=== PATIENT | male | born 1955 | race Caucasian/White ===

== ENCOUNTER 2017-04-15 06:57 | Inpatient (IN) | payer BC ==
[~2017-04-15 06:57] MED LIST: Acetaminophen/oxyCODONE 325-5 MG Tab PO PRN; Bisacodyl 5 MG Tab PO PRN; EPINEPHrine 1 MG/ML SDV ONE; Lactated Ringers 1,000 ML IV SCH; Lidocaine 1%/Sod Bicarbonate in NS 8.4% 1 ML Syringe IV PRN; Magnesium Hydroxide 400 MG/5 ML Susp 30 ML Cup PO PRN; Morphine 2 MG/ML Syringe IVPUSH PRN; Naloxone 0.4 MG/ML SDV IVPUSH PRN; Ondansetron 4 MG/2 ML SDV IVPUSH PRN; Ropivacaine 0.5% 5 MG/ML 30 ML SDV ONE; Sennosides 8.6 MG Tab PO PRN; Sodium Chloride 0.9% 10 ML Syringe FLUSH PRN; diphenhydrAMINE 50 MG/ML SDV IVPUSH PRN
--- NOTE | 2017-04-15 07:59 | PCM.PREANE ---
Preanesthetic Assessment - Anesthesia/Transfusion/Family Hx Anesthesia History: Prior Anesthesia Without Reaction Family History of Anesthesia Reaction: No Transfusion History: No Prior Transfusion(s) Intubation History: Unknown - Review of Systems General: No Symptoms Pulmonary: No Symptoms (quit smoking 2014/albuterol inhaler used one month ago.) Cardiovascular: No Symptoms (HTN, CAD, Heart catheterization 2016/ [place] 11/01/2015) Gastrointestinal: No Symptoms Neurological: No Symptoms, Headache (migraines on occasion, none for a year.) Other: Reports: Diabetes (am bs @ [id number]/ HGB A1C= 6.3), Sinus Problem (post nasal drip in the am.), Neck Pain (some arthritis may be present per patient.) - Physical Assessment NPO Status Date: 04/14/17 NPO Status Time: 18:00 Pulse: 58 O2 Sat by Pulse Oximetry: 97 Respiratory Rate: 17 Blood Pressure: 148/95 Temperature: 36.7 C Vital Signs: Last Vital Signs Temp 36.7 C 04/15/17 07:10 Pulse 58 L 04/15/17 07:10 Resp 17 04/15/17 07:10 BP 148/95 H 04/15/17 07:10 Pulse Ox 97 04/15/17 07:10 Height: 1.88 m Weight: 100 kg ASA Class: 2 Mental Status: Alert & Oriented x3 Airway Class: Mallampati = 2 Dentition: Reports: Normal Dentition, [place](s), [place] Thyro-Mental Finger Breadths: 3 Mouth Opening Finger Breadths: 3 ROM/Head Extension: Full Lungs: Clear to Auscultation, Normal Respiratory Effort Cardiovascular: Regular Rate, Regular Rhythm, No Murmurs - Lab Values: Laboratory Last Values POC Glucose 124 mg/dL (70-105) H 04/15/17 07:31 MRSA= - All labs reviewed and noted and within acceptable ranges to proceed with scheduled procedure. INR= 0.9 PT= 9.7 PTT= 30.9 - Imaging/EKG Impressions: EKG: SB rate = 57 CXR= Normal chest - Allergies Allergies/Adverse Reactions: Allergies Allergy/AdvReac Type Severity Reaction Status Date / Time No Known Allergies Allergy Verified 04/14/17 14:18 - Anesthesia Plan Pre-Op Medication Ordered: None - Acknowledgements Anesthesia Type Planned: General Anesthesia (With a Right interscalene block under ultrasound guidance for post operative pain control requested by Dr. Hernandez. ) Pt an Appropriate Candidate for the Planned Anesthesia: Yes Alternatives and Risks of Anesthesia Discussed w Pt/Guardian: Yes Pt/Guardian Understands and Agrees with Anesthesia Plan: Yes PreAnesthesia Questionnaire HEENT History: Reports: None Other HEENT History: states spotty vision to right eye Cardiovascular History: Reports: High Cholesterol, Hypertension, [place], Other (See Below) Other Cardiovascular History: heart disease, heart catheterization Respiratory History: Reports: None Other Respiratory History: possible gardner's lung Gastrointestinal History: Reports: None Genitourinary History: Reports: None MANAGER GROUP History: Reports: None Musculoskeletal History: Reports: None Neurological History: Reports: Migraines Psychiatric History: Reports: None Endocrine/Metabolic History: Reports: Diabetes, Type II Hematologic History: Reports: None Immunologic History: Reports: None Oncologic (Cancer) History: Reports: None Dermatologic History: Reports: None - Past Surgical History HEENT Surgical History: Reports: LASIK Cardiovascular Surgical History: Reports: None Respiratory Surgical History: Reports: None GI Surgical History: Reports: Appendectomy, Colonoscopy, Hernia Repair/Other Female Surgical History: Reports: None Male Surgical History: Reports: None Endocrine Surgical History: Reports: None Neurological Surgical History: Reports: None Musculoskeletal Surgical History: Reports: Other (See Below) Other Musculoskeletal Surgeries/Procedures:: 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 Oncologic Surgical History: Reports: None Dermatological Surgical History: Reports: None - SUBSTANCE USE Smoking Status *Q: Never Smoker Second Hand Smoke Exposure: No Recreational Drug Use History: No - HOME MEDS Home Medications: Home Meds metFORMIN HCl [Metformin HCl] 500 mg PO BID 10/29/15 [History] Aspirin [Adult Low Dose Aspirin EC] 81 mg PO DAILY 11/19/15 [History] Losartan/Hydrochlorothiazide [Losartan-HCTZ 50-12.5 MG] 1 tab PO DAILY 11/19/15 [History] atorvaSTATin Calcium [Atorvastatin Calcium] 80 mg PO DAILY 11/19/15 [History] Albuterol Sulfate [Proair Hfa] 2 puff INH Q4H PRN 04/14/17 [History] Ubidecarenone [COQ-10] 90 mg PO DAILY 04/14/17 [History] - CURRENT (IN HOUSE) MEDS Current Meds: Current Medications Aspirin (Ecotrin) 325 mg PO DAILY ROSIBEL Bisacodyl (Dulcolax) 5 mg PO DAILY PRN PRN Reason: Constipation Cyclobenzaprine HCl (Flexeril) 10 mg PO TID PRN PRN Reason: Spasms Diphenhydramine HCl (Benadryl) 25 mg IVPUSH Q4H PRN PRN Reason: Nausea Docusate Sodium (Colace) 100 mg PO BID [facility] Famotidine (Pepcid) 20 mg PO Q12H [facility] Lactated Ringer's (Ringers, Lactated) 1,000 mls @ 125 mls/hr IV ASDIRECTED [facility] Stop: 04/15/17 16:00 Cefazolin Sodium/Dextrose 2 gm (/ Premix) 50 mls @ 100 mls/hr IV Q8H [facility] Stop: 04/15/17 23:14 Lidocaine/Sodium Bicarbonate (Buffered Lidocaine 1% In Ns 8.4%) 0.25 ml IV ONETIME PRN PRN Reason: Prior to IV Start Stop: 04/15/17 16:00 Magnesium Hydroxide (Milk Of Magnesia) 30 ml PO BID PRN PRN Reason: Constipation Morphine Sulfate (Morphine) 2 mg IVPUSH Q2H PRN PRN Reason: Breakthrough Pain Naloxone HCl (Narcan) 0.1 mg IVPUSH Q5M PRN PRN Reason: Oversedation Ondansetron HCl (Zofran) 4 mg IVPUSH Q6H PRN PRN Reason: Nausea/Vomiting Oxycodone/Acetaminophen (Percocet 325-5 Mg) 1 - 2 tab PO Q4H PRN PRN Reason: Pain Senna (Senna) 8.6 mg PO BID PRN PRN Reason: Constipation Sodium Chloride (Saline Flush) 10 ml FLUSH ASDIRECTED PRN PRN Reason: Keep Vein Open Discontinued Medications Epinephrine HCl (Adrenalin 1:1000) Confirm Administered Dose 1 mg .ROUTE .STK- MED ONE Stop: 04/15/17 06:15 Ropivacaine (Naropin 0.5%) Confirm Administered Dose 30 ml .ROUTE .STK-MED ONE Stop: 04/15/17 06:15
[2017-04-15] MEDS ORDERED: Vancomycin 1 GM SDV ONE (08:07)
[2017-04-15] MEDS ORDERED: ceFAZolin 1 GM Vial ONE ×2 (08:07→11:28)
[2017-04-15] MEDS ORDERED: Iodine/Sodium Iodide 2% Tincture 30 ML Bottle ONE (08:07)
[2017-04-15] MEDS ORDERED: Bupivacaine 0.25% 30 ML SDV ONE (08:07)
[2017-04-15] MEDS ORDERED: Lidocaine 1% 2 ML ONE (08:51)
[2017-04-15] MEDS ORDERED: fentaNYL 250 MCG/5 ML SDV ONE (08:51)
[2017-04-15] MEDS ORDERED: Midazolam 1 MG/ML 2 ML SDV ONE (08:51)
--- NOTE | 2017-04-15 09:43 | PCM.SN ---
- Free Text/Narrative Note: Anesthesia Note: (Interscalene block note) Date: 04/15/17 Time Out: 0845 Start: 849 Stop: 904 Surgical Procedure: Right Total Shoulder Arthroplasty Diagnosis: Right Shoulder Osteoarthritis Current Procedure: Right interscalene block under US guidance for postoperative pain control requested by Dr. Hernandez. Patient chart reviewed, risk/benefits discussed with patient, consent obtained. Patient positioned supine, monitors/alarms on, oxygen placed via nasal cannula at 2 LPM. IV sedation administered: Versed 2mg IV @ 0851 Fentanyl 50 mcg IV @ 0851 Right shoulder prepped with two chloropreps. Sterile drapes placed with aseptic technique noted. Under US guidance(sterile US sleeve noted) right subclavian artery visualized along with the right brachial plexus. Plexus followed up to C6 cricoid level, and area localized with 2mls of 1% lidocaine. 22gauge 2 inch stimiplex needle advanced under US with 0.5mV with stimulation of biceps noted. Good stimulation noted with decreased voltage and absent at 0.2mVs. 1ml of Normal Saline injected with loss of stimulation noted to confirm needle not placed intraneurally. Incremental dosing of 5mls with negative aspiration noted prior to each injection of 0.5% ropivacaine with 1:200,000 epinephrine. Total volume=30mls. Vital Signs: Before HR: 58 RR: 15 BP: 135/92 Spo2: on 2 LPM nasal cannula After HR: 61 RR: 16 BP: 118/84 Spo2: on 2LPM nasal cannula
[2017-04-15] MEDS ORDERED: Propofol 200 MG/20 ML SDV ONE (10:27)
[2017-04-15] MEDS ORDERED: Ondansetron 4 MG/2 ML SDV ONE (10:28)
[2017-04-15] MEDS ORDERED: Dexamethasone 4 MG/ML 5 ML MDV ONE (10:28)
[2017-04-15] MEDS ORDERED: Lidocaine 1% 4 ML ONE (10:28)
[2017-04-15] MEDS ORDERED: Rocuronium 50 MG/5 ML Vial ONE ×2 (10:28→12:05)
[2017-04-15] MEDS ORDERED: Promethazine 6.25 MG in Sodium Chloride 0.9% 50 ML IV PRN (11:32)
[2017-04-15] MEDS ORDERED: fentaNYL 100 MCG/2 ML SDV IVPUSH PRN (11:32)
[2017-04-15] MEDS ORDERED: Meperidine PF 50 MG/ML Syringe IVPUSH PRN (11:32)
[2017-04-15] MEDS ORDERED: HYDROmorphone 0.5 MG/0.5 ML Syringe IVPUSH PRN (11:32)
[2017-04-15] MEDS ORDERED: diphenhydrAMINE 50 MG/ML SDV IVPUSH PRN (11:32)
[2017-04-15] MEDS ORDERED: Lactated Ringers 1,000 ML ONE (11:34)
--- NOTE | 2017-04-15 13:17 | CR ---
Right shoulder: Four fluoroscopic spot views were obtained. Right shoulder prosthesis placement utilizing C-arm device. Humeral component is noted within the humerus. Fluoroscopy time is given as 5.1 seconds. Impression: 1. Operative study as noted above. Diagnostic code #2
--- NOTE | 2017-04-15 13:38 | PCM.POSTAN ---
POST ANESTHESIA ASSESSMENT - MENTAL STATUS Mental Status: Alert, Oriented - VITAL SIGNS Pulse Rate: 71 SaO2: 96 Resp Rate: 19 Blood Pressure: 139/87 Temperature: 36.6 C - RESPIRATORY Respiratory Status: Respiratory Rate WNL, Airway Patent, O2 Saturation Stable, Supplemental Oxygen - CARDIOVASCULAR CV Status: Pulse Rate WNL, Blood Pressure Stable - GASTROINTESTINAL GI Status: No Symptoms - PAIN Pain Score: 0 - POST OP HYDRATION Hydration Status: Adequate & Stable
[2017-04-15] MEDS ORDERED: Albuterol 6.7 GM Inhaler INH PRN (13:58)
--- NOTE | 2017-04-15 15:10 | PCM.CONS ---
H&P History of Present Illness - General Date of Service: 04/15/17 Admit Problem/Dx: Admission Diagnosis/Problem Admission Diagnosis/Problem Osteoarthritis of shoulder Source of Information: Patient, Other (records review) History Limitations: Reports: No Limitations - History of Present Illness Initial Comments - Free Text/Narative: Juancho is a 61yo male s/p Rt TSA with Dr. Hernandez today. PMH is significant for HTN, HLD, CAD s/p AMI with angiogram in July of 2015, DM with A1C 6.3 preoperatively, neck pain/arthritis, "possible gardner's lung", hx of sinus disease, ex smoker- quit in 2014. Hospitalist service is consulted for postoperative medical management. PCP is - Related Data Allergies/Adverse Reactions: Allergies Allergy/AdvReac Type Severity Reaction Status Date / Time No Known Allergies Allergy Verified 04/14/17 14:18 Home Medications: Home Meds metFORMIN HCl [Metformin HCl] 500 mg PO BID 10/29/15 [History] Aspirin [Adult Low Dose Aspirin EC] 81 mg PO DAILY 11/19/15 [History] Losartan/Hydrochlorothiazide [Losartan-HCTZ 50-12.5 MG] 1 tab PO DAILY 11/19/15 [History] atorvaSTATin Calcium [Atorvastatin Calcium] 80 mg PO DAILY 11/19/15 [History] Albuterol Sulfate [Proair Hfa] 2 puff INH Q4H PRN 04/14/17 [History] Ubidecarenone [COQ-10] 90 mg PO DAILY 04/14/17 [History] Past Medical History HEENT History: Reports: None Other HEENT History: states spotty vision to right eye Cardiovascular History: Reports: High Cholesterol, Hypertension, [place], Other (See Below) Other Cardiovascular History: heart disease, heart catheterization Respiratory History: Reports: None Other Respiratory History: possible gardner's lung Gastrointestinal History: Reports: None Genitourinary History: Reports: None 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: Reports: 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 Musculoskeletal History: Reports: None Neurological History: Reports: Migraines Psychiatric History: Reports: None Endocrine/Metabolic History: Reports: Diabetes, Type II Hematologic History: Reports: None Immunologic History: Reports: None Oncologic (Cancer) History: Reports: None Dermatologic History: Reports: None - Past Surgical History HEENT Surgical History: Reports: LASIK Cardiovascular Surgical History: Reports: None Respiratory Surgical History: Reports: None GI Surgical History: Reports: Appendectomy, Colonoscopy, Hernia Repair/Other Female Surgical History: Reports: None Male Surgical History: Reports: None Endocrine Surgical History: Reports: None Neurological Surgical History: Reports: None Musculoskeletal Surgical History: Reports: Other (See Below) Other Musculoskeletal Surgeries/Procedures:: 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 Denies: Shortness of Breath, Wheezing Cardiovascular: Reports: No Symptoms Gastrointestinal: Reports: No Symptoms Genitourinary: Reports: No Symptoms Musculoskeletal: Reports: Shoulder Pain, Arm Pain Psychiatric: Reports: No Symptoms Neurological: Reports: No Symptoms Exam - Exam Exam: See Below - Vital Signs Vital Signs: Last Vital Signs Temp 97.8 F 04/15/17 13:38 Pulse 71 04/15/17 13:38 Resp 19 04/15/17 13:38 BP 139/87 04/15/17 13:38 Pulse Ox 96 04/15/17 13:38 Weight: 220 lb 7.396 oz - Exam Quality Assessment: DVT Prophylaxis General: Alert, Oriented, Cooperative HEENT: Conjunctiva Clear, EOMI, Hearing Intact, Mucosa Moist & [employer], Pupils Equal Neck: Supple Lungs: Clear to Auscultation, Normal Respiratory Effort Cardiovascular: Regular Rate, Regular Rhythm GI/Abdominal Exam: Normal Bowel Sounds, Soft, Non-Tender (Male) Exam: Deferred Rectal (Males) Exam: Deferred Extremities: Other (shoulder immobilizer in place; CMS + and = bilat) Peripheral Pulses: 2+: Radial (L), Radial (R) Skin: Warm Neurological: Cranial Nerves Intact Neuro Extensive - Mental Status: Alert, Oriented x3, Normal Mood/Affect, Normal Cognition Psychiatric: Alert, Normal Affect, Normal Mood - Patient Data Lab Results Last 24 hrs: Laboratory Results - last 24 hr 04/15/17 Range/Units 07:31 POC Glucose 124 H (70-105) mg/dL Consult PN Assessment/Plan POD#: 0 Procedures: Procedures ASSAY OF CREATININE (10/25/15) ASSAY OF TROPONIN QUANT (10/29/15) CARDIAC REHAB/MONITOR (01/16/16) CHEST X-RAY 1 VIEW FRONTAL (10/29/15) CHEST X-RAY 2VW FRONTAL&LATL (08/28/15) COMPLETE CBC W/AUTO DIFF WBC (10/29/15) COMPREHEN METABOLIC PANEL (10/29/15) CT HEAD/BRAIN W/O & W/DYE (10/25/15) CT ORBIT/EAR/FOSSA W/O&W/DYE (10/25/15) ELECTROCARDIOGRAM TRACING (10/29/15) EMERGENCY DEPT VISIT (10/29/15) INFLUENZA ASSAY W/OPTIC (08/01/15) MR-STAPH DNA AMP PROBE (04/02/17) MRI BRAIN STEM W/O DYE (11/05/15) ROUTINE VENIPUNCTURE (10/29/15) THER/PROPH/DIAG INJ IV PUSH (10/29/15) TX/PRO/DX INJ NEW DRUG ADDON (10/29/15) TX/PRO/DX INJ SAME DRUG [place] (10/29/15) X-RAY EXAM OF FOOT (05/21/14) (1) Status post total shoulder arthroplasty SNOMED Code(s): 078245670 Code(s): Z96.619 - PRESENCE OF UNSPECIFIED ARTIFICIAL SHOULDER JOINT Priority: High Current Visit: Yes (2) Osteoarthritis SNOMED Code(s): 554389537 Code(s): M19.90 - UNSPECIFIED OSTEOARTHRITIS, UNSPECIFIED SITE Priority: High Current Visit: Yes Qualifiers: Osteoarthritis location: shoulder Osteoarthritis type: primary (3) CAD (coronary artery disease) SNOMED Code(s): 67994981 Code(s): I25.10 - ATHSCL HEART DISEASE OF [place] CORONARY ARTERY W/O ANG PCTRS Priority: Medium Current Visit: No Qualifiers: Coronary Disease-Associated Artery/Lesion type: unspecified vessel or lesion type [place] vs. transplanted heart: [place] heart Associated angina: without angina Qualified Code(s): I25.10 - Atherosclerotic heart disease of [place] coronary artery without angina pectoris (4) HTN (hypertension) SNOMED Code(s): 62975952 Code(s): I10 - ESSENTIAL (PRIMARY) HYPERTENSION Priority: Medium Current Visit: No Qualifiers: Hypertension type: essential hypertension Qualified Code(s): I10 - Essential (primary) hypertension (5) HLD (hyperlipidemia) SNOMED Code(s): 16109549 Code(s): E78.5 - HYPERLIPIDEMIA, UNSPECIFIED Priority: Medium Current Visit: No Qualifiers: Hyperlipidemia type: unspecified Qualified Code(s): E78.5 - Hyperlipidemia , unspecified (6) Diabetes type 2, controlled SNOMED Code(s): 73168558 Code(s): E11.9 - TYPE 2 DIABETES MELLITUS WITHOUT COMPLICATIONS Priority: Medium Current Visit: No Qualifiers: Diabetes mellitus complication status: without complication Diabetes mellitus alf insulin use: without termination clerk use Qualified Code(s): E11.9 - Type 2 diabetes mellitus without complications (7) Hx of migraine headaches SNOMED Code(s): 517797949 Code(s): Z86.69 - PERSONAL HISTORY OF DIS OF THE NERVOUS SYS AND SENSE ORGANS Priority: Low Current Visit: No Problem List Initiated/Reviewed/Updated: Yes Plan: I/P: S/P Rt TSA, POD #0, Dr. Hernandez -Pain management and DVT prophylax per primary team -PT/OT -RT/IS -Follow labs, am hgb -Supplemental oxygen as needed for sats <90%; wean when able Chronic medical conditions: Cont home meds -DM- type 2, controlled, A1C 6.3 -Hx CAD s/p AMI in 2016 -HLD -HTN- controlled -"possible farmers lung"; watch O2 sats, wean from supplemental oxygen when able -Hx migraine headaches -Hx tobacco use, quit smoking in 2014 Other: GI Prophylax Cont home meds Blood sugars AC/HS Telemetry Patient is Full Code status PCP is
[2017-04-15] MEDS ORDERED: 50% Dextrose in Water 50 ML Syringe IVPUSH PRN (15:26)
--- NOTE | 2017-04-15 16:26 | CR ---
Right shoulder: Portable view of the right shoulder was obtained. Comparison: No prior shoulder exam other than fluoroscopic study performed earlier on the same day. Shoulder prosthesis is seen. Components are aligned. Minimal inferior spurring is seen within the acromioclavicular joint. Nothing acute is seen. Soft tissue air is noted from the surgical procedure. Impression: 1. Incidental findings as noted above. Diagnostic code #2
[2017-04-15] MEDS: Ketorolac 15 MG/ML SDV IVPUSH PRN (16:27)
[2017-04-15] MEDS: Cyclobenzaprine 10 MG Tab PO PRN (16:28)
[2017-04-15] MEDS: ceFAZolin 2 GM in Premix Bag 1 BAG IV SCH (16:39)
[2017-04-15] MEDS: Insulin Aspart 100 Units/ML 3 ML Pen SUBCUT SCH ×2 (17:04→21:12)
[2017-04-15] MEDS: Docusate Sodium 100 MG Cap PO SCH (21:08)
[2017-04-15] MEDS: Acetaminophen/HYDROcodone 325-5 MG Tab PO PRN (21:09)
[2017-04-15] MEDS: Famotidine 20 MG Tab PO SCH (21:09)
[2017-04-15] MEDS: metFORMIN 500 MG Tab PO SCH (21:09)
[2017-04-16] MEDS: ceFAZolin 2 GM in Premix Bag 1 BAG IV SCH ×2 (00:32→09:06)
[2017-04-16] MEDS: Ketorolac 15 MG/ML SDV IVPUSH PRN (01:16)
[2017-04-16] MEDS: Cyclobenzaprine 10 MG Tab PO PRN ×2 (07:00→13:14)
[2017-04-16] MEDS: Acetaminophen/HYDROcodone 325-5 MG Tab PO PRN ×2 (07:00→10:41)
[2017-04-16] MEDS ORDERED: Hydrochlorothiazide 12.5 MG Cap PO SCH (09:00)
[2017-04-16] MEDS ORDERED: Rosuvastatin 10 MG Tab PO SCH (09:00)
[2017-04-16] MEDS ORDERED: Losartan 25 MG Tab PO SCH (09:00)
[2017-04-16] MEDS ORDERED: UBIDECARENONE PO SCH (09:00)
[2017-04-16] MEDS ORDERED: Aspirin 325 MG Tab.EC PO SCH (09:00)
[2017-04-16] MEDS ORDERED: Non-Formulary Medication 1 Each (Losartan/Hydrochlorothiazide 1 TAB) PO SCH (09:00)
[2017-04-16] MEDS: Docusate Sodium 100 MG Cap PO SCH (09:02)
[2017-04-16] MEDS: Famotidine 20 MG Tab PO SCH (09:03)
[2017-04-16] MEDS: metFORMIN 500 MG Tab PO SCH (09:03)
[2017-04-16] MEDS: Insulin Aspart 100 Units/ML 3 ML Pen SUBCUT SCH ×2 (09:06→12:32)
--- NOTE | 2017-04-16 10:13 | PCM.CONSN ---
- General Info Date of Service: 04/16/17 Admission Dx/Problem (Free Text): Admission Diagnosis/Problem Admission Diagnosis/Problem Osteoarthritis of shoulder POD #1 Rt TSA, Dr. Hernandez. Pain is minimal to none, doing very well. No n/v. Tolerating diet- good appetite. BG is up more than usual, he usually runs 120's in the mornings. Did well with PT this morning. Plans for DC home today. Functional Status: Reports: Pain Controlled, Tolerating Diet, Ambulating, Urinating, Incentive Spirometry. Denies: New Symptoms - Review of Systems General: Reports: No Symptoms HEENT: Reports: No Symptoms Pulmonary: Reports: No Symptoms Cardiovascular: Reports: No Symptoms Gastrointestinal: Reports: No Symptoms Genitourinary: Reports: No Symptoms Musculoskeletal: Reports: Shoulder Pain (minimal) Skin: Reports: No Symptoms Neurological: Reports: No Symptoms Psychiatric: Reports: No Symptoms - Patient Data Vitals - Most Recent: Last Vital Signs Temp 99.5 F 04/16/17 07:41 Pulse 72 04/16/17 07:41 Resp 16 04/16/17 07:41 BP 116/77 04/16/17 09:03 Pulse Ox 97 04/16/17 07:41 Weight - Most Recent: 229 lb 8 oz I&O - Last 24 Hours: Intake & Output 04/15/17 04/16/17 04/16/17 22:59 06:59 14:59 Intake Total 3440 1500 Output Total 1000 Balance 3440 500 Lab Results Last 24 Hours: Laboratory Results - last 24 hr 04/15/17 04/15/17 04/16/17 Range/Units 17:02 21:12 07:05 WBC (4.23-9.07) K/mm3 RBC (4.63-6.08) M/mm3 Hgb (13.7-17.5) gm/L Hct (40.1-51.0) % MCV (79.0-92.2) fl MCH (25.7-32.2) pg MCHC (32.2-35.5) g/dl RDW Std Deviation (35.1-43.9) fL Plt Count (163-337) K/mm3 MPV (9.4-12.3) fl Neut % (Auto) (34.0-67.9) % Lymph % (Auto) (21.8-53.1) % [place] % (Auto) (5.3-12.2) % Eos % (Auto) (0.8-7.0) Baso % (Auto) (0.1-1.2) % Neut # (Auto) (1.78-5.38) K/mm3 Lymph # (Auto) (1.32-3.57) K/mm3 [place] # (Auto) (0.30-0.82) K/mm3 Eos # (Auto) (0.04-0.54) K/mm3 Baso # (Auto) (0.01-0.08) K/mm3 Sodium (136-145) mEq/L Potassium (3.5-5.1) mEq/L Chloride (98-107) mEq/L Carbon Dioxide (21-32) mEq/L Anion Gap (5-15) BUN (7-18) mg/dL Creatinine (0.7-1.3) mg/dL Est Cr Clr Drug Dosing mL/min Estimated GFR (MDRD) (>60) mL/min BUN/Creatinine Ratio (14-18) Glucose (74-106) mg/dL POC Glucose 184 H 176 H 154 H (70-105) mg/dL Calcium (8.5-10.1) mg/dL Total Bilirubin (0.2-1.0) mg/dL AST (15-37) U/L ALT (16-63) U/L Alkaline Phosphatase (46-116) U/L Total Protein (6.4-8.2) g/dl Albumin (3.4-5.0) g/dl Globulin gm/dL Albumin/Globulin Ratio (1-2) 04/16/17 04/16/17 Range/Units 08:06 08:06 WBC 15.14 H (4.23-9.07) K/mm3 RBC 4.43 L (4.63-6.08) M/mm3 Hgb 13.3 L (13.7-17.5) gm/L Hct 38.8 L (40.1-51.0) % MCV 87.6 (79.0-92.2) fl MCH 30.0 (25.7-32.2) pg MCHC 34.3 (32.2-35.5) g/dl RDW Std Deviation 41.0 (35.1-43.9) fL Plt Count 282 (163-337) K/mm3 MPV 9.5 (9.4-12.3) fl Neut % (Auto) 75.8 H (34.0-67.9) % Lymph % (Auto) 13.1 L (21.8-53.1) % [place] % (Auto) 10.4 (5.3-12.2) % Eos % (Auto) 0.3 L (0.8-7.0) Baso % (Auto) 0.1 (0.1-1.2) % Neut # (Auto) 11.47 H (1.78-5.38) K/mm3 Lymph # (Auto) 1.99 (1.32-3.57) K/mm3 [place] # (Auto) 1.57 H (0.30-0.82) K/mm3 Eos # (Auto) 0.05 (0.04-0.54) K/mm3 Baso # (Auto) 0.01 (0.01-0.08) K/mm3 Sodium 135 L (136-145) mEq/L Potassium 4.0 (3.5-5.1) mEq/L Chloride 99 (98-107) mEq/L Carbon Dioxide 26 (21-32) mEq/L Anion Gap 14.0 (5-15) BUN 23 H (7-18) mg/dL Creatinine 1.6 H (0.7-1.3) mg/dL Est Cr Clr Drug Dosing 57.80 mL/min Estimated GFR (MDRD) 44 (>60) mL/min BUN/Creatinine Ratio 14.4 (14-18) Glucose 135 H (74-106) mg/dL POC Glucose (70-105) mg/dL Calcium 9.0 (8.5-10.1) mg/dL Total Bilirubin 0.7 (0.2-1.0) mg/dL AST 18 (15-37) U/L ALT 33 (16-63) U/L Alkaline Phosphatase 34 L (46-116) U/L Total Protein 7.0 (6.4-8.2) g/dl Albumin 3.6 (3.4-5.0) g/dl Globulin 3.4 gm/dL Albumin/Globulin Ratio 1.1 (1-2) Med Orders - Current: Current Medications Hydrocodone Bitart/Acetaminophen ([place] 325-5 Mg) 2 tab PO Q4H PRN PRN Reason: Pain Last Admin: 04/16/17 07:00 Dose: 2 tab Albuterol (Proventil Hfa) 0 gm INH Q4H PRN PRN Reason: Shortness of Breath Aspirin (Ecotrin) 325 mg PO DAILY [facility] Last Admin: 04/16/17 09:03 Dose: 325 mg Bisacodyl (Dulcolax) 5 mg PO DAILY PRN PRN Reason: Constipation Cyclobenzaprine HCl (Flexeril) 10 mg PO TID PRN PRN Reason: Spasms Last Admin: 04/16/17 07:00 Dose: 10 mg Dextrose/Water (Dextrose 50% In Water) 50 ml IVPUSH ASDIRECTED PRN PRN Reason: Hypoglycemia Docusate Sodium (Colace) 100 mg PO BID [facility] Last Admin: 04/16/17 09:02 Dose: 100 mg Famotidine (Pepcid) 20 mg PO Q12H [facility] Last Admin: 04/16/17 09:03 Dose: 20 mg Hydrochlorothiazide (Hydrochlorothiazide) 12.5 mg PO DAILY [facility] Last Admin: 04/16/17 09:03 Dose: 12.5 mg Insulin Aspart (Novolog) 0 unit SUBCUT QIDACANDBED [facility] PRN Reason: Protocol Last Admin: 04/16/17 09:06 Dose: 1 units Losartan Potassium (Cozaar) 50 mg PO DAILY [facility] Last Admin: 04/16/17 09:03 Dose: 50 mg Magnesium Hydroxide (Milk Of Magnesia) 30 ml PO BID PRN PRN Reason: Constipation Metformin HCl (Glucophage) 500 mg PO BID [facility] Last Admin: 04/16/17 09:03 Dose: 500 mg Morphine Sulfate (Morphine) 2 mg IVPUSH Q2H PRN PRN Reason: Breakthrough Pain Naloxone HCl (Narcan) 0.1 mg IVPUSH Q5M PRN PRN Reason: Oversedation Ondansetron HCl (Zofran) 4 mg IVPUSH Q6H PRN PRN Reason: Nausea/Vomiting Ubidecarenone 90mg 1 each PO DAILY [facility] Last Admin: 04/16/17 10:00 Dose: Not Given Rosuvastatin Calcium (Crestor) 20 mg PO DAILY [facility] Last Admin: 04/16/17 09:03 Dose: 20 mg Senna (Senna) 8.6 mg PO BID PRN PRN Reason: Constipation Sodium Chloride (Saline Flush) 10 ml FLUSH ASDIRECTED PRN PRN Reason: Keep Vein Open Discontinued Medications Bupivacaine HCl (Marcaine 0.25%) Confirm Administered Dose 30 ml .ROUTE .STK- MED ONE Stop: 04/15/17 08:08 Last Admin: 04/15/17 12:50 Dose: 20 ml Cefazolin Sodium (Ancef) Confirm Administered Dose 2 gm .ROUTE .STK-MED ONE Stop: 04/15/17 08:08 Last Admin: 04/15/17 12:47 Dose: 2 gm Cefazolin Sodium (Ancef) Confirm Administered Dose 2 gm .ROUTE .STK-MED ONE Stop: 04/15/17 11:29 Dexamethasone (Dexamethasone) Confirm Administered Dose 20 mg .ROUTE .STK-MED ONE Stop: 04/15/17 10:29 Diphenhydramine HCl (Benadryl) 25 mg IVPUSH Q4H PRN PRN Reason: Nausea Diphenhydramine HCl (Benadryl) 25 mg IVPUSH Q6H PRN PRN Reason: Pruritis Stop: 04/15/17 18:00 Epinephrine HCl (Adrenalin 1:1000) Confirm Administered Dose 1 mg .ROUTE .STK- MED ONE Stop: 04/15/17 06:15 Fentanyl (Sublimaze) Confirm Administered Dose 250 mcg .ROUTE .STK-MED ONE Stop: 04/15/17 08:52 Fentanyl (Sublimaze) 50 mcg IVPUSH Q5M PRN PRN Reason: Pain Stop: 04/15/17 18:00 Hydromorphone HCl (Dilaudid) 0.5 mg IVPUSH Q15M PRN PRN Reason: Pain (severe 7-10) Stop: 04/15/17 18:00 Last Admin: 04/15/17 14:16 Dose: 0.5 mg Lactated Ringer's (Ringers, Lactated) 1,000 mls @ 125 mls/hr IV ASDIRECTED [facility] Stop: 04/15/17 16:00 Last Admin: 04/15/17 07:30 Dose: 125 mls/hr Cefazolin Sodium/Dextrose 2 gm (/ Premix) 50 mls @ 100 mls/hr IV Q8H [facility] Stop: 04/16/17 08:44 Last Admin: 04/16/17 09:06 Dose: 100 mls/hr Lidocaine HCl (Xylocaine-Mpf 1%) Confirm Administered Dose 2 mls @ as directed .ROUTE .STK-MED ONE Stop: 04/15/17 08:52 Lidocaine HCl (Xylocaine-Mpf 1%) Confirm Administered Dose 4 mls @ as directed .ROUTE .STK-MED ONE Stop: 04/15/17 10:29 Lactated Ringer's (Ringers, Lactated) Confirm Administered Dose 1,000 mls @ as directed .ROUTE .STK-MED ONE Stop: 04/15/17 11:35 Promethazine HCl 6.25 mg/ (Sodium Chloride) 50.25 mls @ 100 mls/hr IV ONETIME PRN PRN Reason: Nausea/Vomiting Stop: 04/15/17 18:00 Acetaminophen (Ofirmev) 100 mls @ 400 mls/hr IV NOW ONE Stop: 04/15/17 17:44 Last Admin: 04/15/17 17:06 Dose: 400 mls/hr Iodine (Iodine 2% Mild Tincture) Confirm Administered Dose 30 ml .ROUTE .STK- MED ONE Stop: 04/15/17 08:08 Last Admin: 04/15/17 12:43 Dose: 18 ml Ketorolac Tromethamine (Toradol) 15 mg IVPUSH Q6H PRN PRN Reason: Pain Last Admin: 04/16/17 01:16 Dose: 15 mg Lidocaine/Sodium Bicarbonate (Buffered Lidocaine 1% In Ns 8.4%) 0.25 ml IV ONETIME PRN PRN Reason: Prior to IV Start Stop: 04/15/17 16:00 Last Admin: 04/15/17 07:30 Dose: 0.25 ml Meperidine HCl (Demerol) 12.5 mg IVPUSH ONETIME PRN PRN Reason: Shivering Stop: 04/15/17 18:00 Midazolam HCl (Versed 1 Mg/Ml) Confirm Administered Dose 2 mg .ROUTE .STK-MED ONE Stop: 04/15/17 08:52 Non-Formulary Medication (Losartan/Hydrochlorothiazide) 1 tab PO DAILY [facility] Ondansetron HCl (Zofran) Confirm Administered Dose 4 mg .ROUTE .STK-MED ONE Stop: 04/15/17 10:29 Oxycodone/Acetaminophen (Percocet 325-5 Mg) 1 - 2 tab PO Q4H PRN PRN Reason: Pain Propofol (Diprivan 20 Ml) Confirm Administered Dose 200 mg .ROUTE .STK-MED ONE Stop: 04/15/17 10:28 Rocuronium [place] (Zemuron) Confirm Administered Dose 50 mg .ROUTE .STK-MED ONE Stop: 04/15/17 10:29 Rocuronium [place] (Zemuron) Confirm Administered Dose 50 mg .ROUTE .STK-MED ONE Stop: 04/15/17 12:06 Ropivacaine (Naropin 0.5%) Confirm Administered Dose 30 ml .ROUTE .STK-MED ONE Stop: 04/15/17 06:15 Tranexamic Acid (Cyklokapron) Confirm Administered Dose 1,000 mg .ROUTE .STK- MED ONE Stop: 04/15/17 08:08 Last Admin: 04/15/17 12:55 Dose: 1,000 mg Vancomycin HCl (Vancomycin) Confirm Administered Dose 1 gm .ROUTE .STK-MED ONE Stop: 04/15/17 08:08 Last Admin: 04/15/17 12:56 Dose: 1 gm - Exam Quality Assessment: DVT Prophylaxis General: Alert, Oriented, Cooperative, No Acute Distress HEENT: Pupils Equal, Pupils Reactive, Mucous Membr. Moist/[place] Neck: Supple Lungs: Clear to Auscultation, Normal Respiratory Effort Cardiovascular: Regular Rate, Regular Rhythm GI/Abdominal Exam: Normal Bowel Sounds, Soft, Non-Tender (Male) Exam: Deferred Extremities: Normal Inspection, No Pedal Edema, Normal Capillary Refill Peripheral Pulses: 2+: Radial (L), Radial (R) Skin: Warm, Dry Wound/Incisions: Dressing Dry and Intact (to rt shoulder) Neurological: No New Focal Deficit Psy/Mental Status: Alert, Normal Affect, Normal Mood Consult PN Assessment/Plan POD#: 1 Procedures: Procedures ASSAY OF CREATININE (10/25/15) ASSAY OF TROPONIN QUANT (10/29/15) CARDIAC REHAB/MONITOR (01/16/16) CHEST X-RAY 1 VIEW FRONTAL (10/29/15) CHEST X-RAY 2VW FRONTAL&LATL (08/28/15) COMPLETE CBC W/AUTO DIFF WBC (10/29/15) COMPREHEN METABOLIC PANEL (10/29/15) CT HEAD/BRAIN W/O & W/DYE (10/25/15) CT ORBIT/EAR/FOSSA W/O&W/DYE (10/25/15) ELECTROCARDIOGRAM TRACING (10/29/15) EMERGENCY DEPT VISIT (10/29/15) INFLUENZA ASSAY W/OPTIC (08/01/15) MR-STAPH DNA AMP PROBE (04/02/17) MRI BRAIN STEM W/O DYE (11/05/15) ROUTINE VENIPUNCTURE (10/29/15) THER/PROPH/DIAG INJ IV PUSH (10/29/15) TX/PRO/DX INJ NEW DRUG ADDON (10/29/15) TX/PRO/DX INJ SAME DRUG PILLOW AGENT (10/29/15) X-RAY EXAM OF FOOT (05/21/14) (1) Status post total shoulder arthroplasty SNOMED Code(s): 651518040 Code(s): Z96.619 - PRESENCE OF UNSPECIFIED ARTIFICIAL SHOULDER JOINT Priority: High Current Visit: Yes Qualifiers: Laterality: right Qualified Code(s): Z96.611 - Presence of right artificial shoulder joint (2) Osteoarthritis SNOMED Code(s): 245686631 Code(s): M19.90 - UNSPECIFIED OSTEOARTHRITIS, UNSPECIFIED SITE Priority: High Current Visit: Yes Qualifiers: Osteoarthritis location: shoulder Osteoarthritis type: primary Laterality : right Qualified Code(s): M19.011 - Primary osteoarthritis, right shoulder (3) CAD (coronary artery disease) SNOMED Code(s): 91751132 Code(s): I25.10 - ATHSCL HEART DISEASE OF [place] CORONARY ARTERY W/O ANG PCTRS Priority: Medium Current Visit: No Qualifiers: Coronary Disease-Associated Artery/Lesion type: unspecified vessel or lesion type [place] vs. transplanted heart: [place] heart Associated angina: without angina Qualified Code(s): I25.10 - Atherosclerotic heart disease of [place] coronary artery without angina pectoris (4) HTN (hypertension) SNOMED Code(s): 32300723 Code(s): I10 - ESSENTIAL (PRIMARY) HYPERTENSION Priority: Medium Current Visit: No Qualifiers: Hypertension type: essential hypertension Qualified Code(s): I10 - Essential (primary) hypertension (5) HLD (hyperlipidemia) SNOMED Code(s): 55889668 Code(s): E78.5 - HYPERLIPIDEMIA, UNSPECIFIED Priority: Medium Current Visit: No Qualifiers: Hyperlipidemia type: unspecified Qualified Code(s): E78.5 - Hyperlipidemia , unspecified (6) Diabetes type 2, controlled SNOMED Code(s): 20732493 Code(s): E11.9 - TYPE 2 DIABETES MELLITUS WITHOUT COMPLICATIONS Priority: Medium Current Visit: No Qualifiers: Diabetes mellitus complication status: without complication Diabetes mellitus fdc insulin use: without terminal computer operator use Qualified Code(s): E11.9 - Type 2 diabetes mellitus without complications (7) Hx of migraine headaches SNOMED Code(s): 830975181 Code(s): Z86.69 - PERSONAL HISTORY OF DIS OF THE NERVOUS SYS AND SENSE ORGANS Priority: Low Current Visit: No Problem List Initiated/Reviewed/Updated: Yes My Orders Last 24 Hours: My Active Orders 04/15/17 15:25 Accu Check [Blood Glucose Check, Bedside] [RC] QIDACANDBED 04/15/17 15:26 Telemetry Monitoring [Cardiac Monitoring] [RC] . DIRECTED Dextrose 50% in Water 50 ml IVPUSH ASDIRECTED PRN 04/15/17 17:00 Insulin Aspart [NovoLOG] See Protocol SUBCUT QIDACANDBED 04/15/17 18:00 Patient Status [ADT] Routine 04/16/17 08:06 CBC WITH AUTO DIFF [HEME] Routine Plan: I/P: S/P Rt TSA, POD #1, Dr. 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 Patient is Full Code status PCP is Dr. Hebert with [facility].
[2017-04-16 12:04] VITALS: BP 127/78
--- NOTE | 2017-04-16 13:16 | PCM.SURGPN ---
- General Info Date of Service: 04/16/17 POD#: 1 Functional Status: Reports: Pain Controlled, Tolerating Diet, Ambulating, Urinating, Incentive Spirometry - Review of Systems Musculoskeletal: Reports: Other (The pt has met inpatient therapy goals. The pt states he is prepared for discharge to home.) - Patient Data Vitals - Most Recent: Last Vital Signs Temp 97.3 F 04/16/17 12:04 Pulse 70 04/16/17 12:04 Resp 18 04/16/17 12:04 BP 127/78 04/16/17 12:04 Pulse Ox 94 L 04/16/17 12:04 Weight - Most Recent: 229 lb 8 oz I&O - Last 24 Hours: Intake & Output 04/15/17 04/16/17 04/16/17 22:59 06:59 14:59 Intake Total 3440 1500 180 Output Total 1000 Balance 3440 500 180 Lab Results Last 24 Hrs: Laboratory Results - last 24 hr 04/15/17 04/15/17 04/16/17 Range/Units 17:02 21:12 07:05 WBC (4.23-9.07) K/mm3 RBC (4.63-6.08) M/mm3 Hgb (13.7-17.5) gm/L Hct (40.1-51.0) % MCV (79.0-92.2) fl MCH (25.7-32.2) pg MCHC (32.2-35.5) g/dl RDW Std Deviation (35.1-43.9) fL Plt Count (163-337) K/mm3 MPV (9.4-12.3) fl Neut % (Auto) (34.0-67.9) % Lymph % (Auto) (21.8-53.1) % [place] % (Auto) (5.3-12.2) % Eos % (Auto) (0.8-7.0) Baso % (Auto) (0.1-1.2) % Neut # (Auto) (1.78-5.38) K/mm3 Lymph # (Auto) (1.32-3.57) K/mm3 [place] # (Auto) (0.30-0.82) K/mm3 Eos # (Auto) (0.04-0.54) K/mm3 Baso # (Auto) (0.01-0.08) K/mm3 Manual Slide Review Sodium (136-145) mEq/L Potassium (3.5-5.1) mEq/L Chloride (98-107) mEq/L Carbon Dioxide (21-32) mEq/L Anion Gap (5-15) BUN (7-18) mg/dL Creatinine (0.7-1.3) mg/dL Est Cr Clr Drug Dosing mL/min Estimated GFR (MDRD) (>60) mL/min BUN/Creatinine Ratio (14-18) Glucose (74-106) mg/dL POC Glucose 184 H 176 H 154 H (70-105) mg/dL Calcium (8.5-10.1) mg/dL Total Bilirubin (0.2-1.0) mg/dL AST (15-37) U/L ALT (16-63) U/L Alkaline Phosphatase (46-116) U/L Total Protein (6.4-8.2) g/dl Albumin (3.4-5.0) g/dl Globulin gm/dL Albumin/Globulin Ratio (1-2) 04/16/17 04/16/17 04/16/17 Range/Units 08:06 08:06 11:29 WBC 15.14 H (4.23-9.07) K/mm3 RBC 4.43 L (4.63-6.08) M/mm3 Hgb 13.3 L (13.7-17.5) gm/L Hct 38.8 L (40.1-51.0) % MCV 87.6 (79.0-92.2) fl MCH 30.0 (25.7-32.2) pg MCHC 34.3 (32.2-35.5) g/dl RDW Std Deviation 41.0 (35.1-43.9) fL Plt Count 282 (163-337) K/mm3 MPV 9.5 (9.4-12.3) fl Neut % (Auto) 75.8 H (34.0-67.9) % Lymph % (Auto) 13.1 L (21.8-53.1) % [place] % (Auto) 10.4 (5.3-12.2) % Eos % (Auto) 0.3 L (0.8-7.0) Baso % (Auto) 0.1 (0.1-1.2) % Neut # (Auto) 11.47 H (1.78-5.38) K/mm3 Lymph # (Auto) 1.99 (1.32-3.57) K/mm3 [place] # (Auto) 1.57 H (0.30-0.82) K/mm3 Eos # (Auto) 0.05 (0.04-0.54) K/mm3 Baso # (Auto) 0.01 (0.01-0.08) K/mm3 Manual Slide Review Normal smear Sodium 135 L (136-145) mEq/L Potassium 4.0 (3.5-5.1) mEq/L Chloride 99 (98-107) mEq/L Carbon Dioxide 26 (21-32) mEq/L Anion Gap 14.0 (5-15) BUN 23 H (7-18) mg/dL Creatinine 1.6 H (0.7-1.3) mg/dL Est Cr Clr Drug Dosing 57.80 mL/min Estimated GFR (MDRD) 44 (>60) mL/min BUN/Creatinine Ratio 14.4 (14-18) Glucose 135 H (74-106) mg/dL POC Glucose 135 H (70-105) mg/dL Calcium 9.0 (8.5-10.1) mg/dL Total Bilirubin 0.7 (0.2-1.0) mg/dL AST 18 (15-37) U/L ALT 33 (16-63) U/L Alkaline Phosphatase 34 L (46-116) U/L Total Protein 7.0 (6.4-8.2) g/dl Albumin 3.6 (3.4-5.0) g/dl Globulin 3.4 gm/dL Albumin/Globulin Ratio 1.1 (1-2) Med Orders - Current: Current Medications Hydrocodone Bitart/Acetaminophen ([place] 325-5 Mg) 2 tab PO Q4H PRN PRN Reason: Pain Last Admin: 04/16/17 10:41 Dose: 2 tab Albuterol (Proventil Hfa) 0 gm INH Q4H PRN PRN Reason: Shortness of Breath Aspirin (Ecotrin) 325 mg PO DAILY [facility] Last Admin: 04/16/17 09:03 Dose: 325 mg Bisacodyl (Dulcolax) 5 mg PO DAILY PRN PRN Reason: Constipation Cyclobenzaprine HCl (Flexeril) 10 mg PO TID PRN PRN Reason: Spasms Last Admin: 04/16/17 13:14 Dose: 10 mg Dextrose/Water (Dextrose 50% In Water) 50 ml IVPUSH ASDIRECTED PRN PRN Reason: Hypoglycemia Docusate Sodium (Colace) 100 mg PO BID [facility] Last Admin: 04/16/17 09:02 Dose: 100 mg Famotidine (Pepcid) 20 mg PO Q12H [facility] Last Admin: 04/16/17 09:03 Dose: 20 mg Hydrochlorothiazide (Hydrochlorothiazide) 12.5 mg PO DAILY [facility] Last Admin: 04/16/17 09:03 Dose: 12.5 mg Insulin Aspart (Novolog) 0 unit SUBCUT QIDACANDBED [facility] PRN Reason: Protocol Last Admin: 04/16/17 12:32 Dose: Not Given Losartan Potassium (Cozaar) 50 mg PO DAILY [facility] Last Admin: 04/16/17 09:03 Dose: 50 mg Magnesium Hydroxide (Milk Of Magnesia) 30 ml PO BID PRN PRN Reason: Constipation Metformin HCl (Glucophage) 500 mg PO BID [facility] Last Admin: 04/16/17 09:03 Dose: 500 mg Morphine Sulfate (Morphine) 2 mg IVPUSH Q2H PRN PRN Reason: Breakthrough Pain Naloxone HCl (Narcan) 0.1 mg IVPUSH Q5M PRN PRN Reason: Oversedation Ondansetron HCl (Zofran) 4 mg IVPUSH Q6H PRN PRN Reason: Nausea/Vomiting Ubidecarenone 90mg 1 each PO DAILY [facility] Last Admin: 04/16/17 10:00 Dose: Not Given Rosuvastatin Calcium (Crestor) 20 mg PO DAILY [facility] Last Admin: 04/16/17 09:03 Dose: 20 mg Senna (Senna) 8.6 mg PO BID PRN PRN Reason: Constipation Sodium Chloride (Saline Flush) 10 ml FLUSH ASDIRECTED PRN PRN Reason: Keep Vein Open Discontinued Medications Bupivacaine HCl (Marcaine 0.25%) Confirm Administered Dose 30 ml .ROUTE .STK- MED ONE Stop: 04/15/17 08:08 Last Admin: 04/15/17 12:50 Dose: 20 ml Cefazolin Sodium (Ancef) Confirm Administered Dose 2 gm .ROUTE .STK-MED ONE Stop: 04/15/17 08:08 Last Admin: 04/15/17 12:47 Dose: 2 gm Cefazolin Sodium (Ancef) Confirm Administered Dose 2 gm .ROUTE .STK-MED ONE Stop: 04/15/17 11:29 Dexamethasone (Dexamethasone) Confirm Administered Dose 20 mg .ROUTE .STK-MED ONE Stop: 04/15/17 10:29 Diphenhydramine HCl (Benadryl) 25 mg IVPUSH Q4H PRN PRN Reason: Nausea Diphenhydramine HCl (Benadryl) 25 mg IVPUSH Q6H PRN PRN Reason: Pruritis Stop: 04/15/17 18:00 Epinephrine HCl (Adrenalin 1:1000) Confirm Administered Dose 1 mg .ROUTE .ST- MED ONE Stop: 04/15/17 06:15 Fentanyl (Sublimaze) Confirm Administered Dose 250 mcg .ROUTE .ST-MED ONE Stop: 04/15/17 08:52 Fentanyl (Sublimaze) 50 mcg IVPUSH Q5M PRN PRN Reason: Pain Stop: 04/15/17 18:00 Hydromorphone HCl (Dilaudid) 0.5 mg IVPUSH Q15M PRN PRN Reason: Pain (severe 7-10) Stop: 04/15/17 18:00 Last Admin: 04/15/17 14:16 Dose: 0.5 mg Lactated Ringer's (Ringers, Lactated) 1,000 mls @ 125 mls/hr IV ASDIRECTED [facility] Stop: 04/15/17 16:00 Last Admin: 04/15/17 07:30 Dose: 125 mls/hr Cefazolin Sodium/Dextrose 2 gm (/ Premix) 50 mls @ 100 mls/hr IV Q8H [facility] Stop: 04/16/17 08:44 Last Admin: 04/16/17 09:06 Dose: 100 mls/hr Lidocaine HCl (Xylocaine-Mpf 1%) Confirm Administered Dose 2 mls @ as directed .ROUTE .STK-MED ONE Stop: 04/15/17 08:52 Lidocaine HCl (Xylocaine-Mpf 1%) Confirm Administered Dose 4 mls @ as directed .ROUTE .STK-MED ONE Stop: 04/15/17 10:29 Lactated Ringer's (Ringers, Lactated) Confirm Administered Dose 1,000 mls @ as directed .ROUTE .STK-MED ONE Stop: 04/15/17 11:35 Promethazine HCl 6.25 mg/ (Sodium Chloride) 50.25 mls @ 100 mls/hr IV ONETIME PRN PRN Reason: Nausea/Vomiting Stop: 04/15/17 18:00 Acetaminophen (Ofirmev) 100 mls @ 400 mls/hr IV NOW ONE Stop: 04/15/17 17:44 Last Admin: 04/15/17 17:06 Dose: 400 mls/hr Iodine (Iodine 2% Mild Tincture) Confirm Administered Dose 30 ml .ROUTE .STK- MED ONE Stop: 04/15/17 08:08 Last Admin: 04/15/17 12:43 Dose: 18 ml Ketorolac Tromethamine (Toradol) 15 mg IVPUSH Q6H PRN PRN Reason: Pain Last Admin: 04/16/17 01:16 Dose: 15 mg Lidocaine/Sodium Bicarbonate (Buffered Lidocaine 1% In Ns 8.4%) 0.25 ml IV ONETIME PRN PRN Reason: Prior to IV Start Stop: 04/15/17 16:00 Last Admin: 04/15/17 07:30 Dose: 0.25 ml Meperidine HCl (Demerol) 12.5 mg IVPUSH ONETIME PRN PRN Reason: Shivering Stop: 04/15/17 18:00 Midazolam HCl (Versed 1 Mg/Ml) Confirm Administered Dose 2 mg .ROUTE .STK-MED ONE Stop: 04/15/17 08:52 Non-Formulary Medication (Losartan/Hydrochlorothiazide) 1 tab PO DAILY [facility] Ondansetron HCl (Zofran) Confirm Administered Dose 4 mg .ROUTE .STK-MED ONE Stop: 04/15/17 10:29 Oxycodone/Acetaminophen (Percocet 325-5 Mg) 1 - 2 tab PO Q4H PRN PRN Reason: Pain Propofol (Diprivan 20 Ml) Confirm Administered Dose 200 mg .ROUTE .STK-MED ONE Stop: 04/15/17 10:28 Rocuronium [place] (Zemuron) Confirm Administered Dose 50 mg .ROUTE .STK-MED ONE Stop: 04/15/17 10:29 Rocuronium [place] (Zemuron) Confirm Administered Dose 50 mg .ROUTE .STK-MED ONE Stop: 04/15/17 12:06 Ropivacaine (Naropin 0.5%) Confirm Administered Dose 30 ml .ROUTE .STK-MED ONE Stop: 04/15/17 06:15 Tranexamic Acid (Cyklokapron) Confirm Administered Dose 1,000 mg .ROUTE .STK- MED ONE Stop: 04/15/17 08:08 Last Admin: 04/15/17 12:55 Dose: 1,000 mg Vancomycin HCl (Vancomycin) Confirm Administered Dose 1 gm .ROUTE .STK-MED ONE Stop: 04/15/17 08:08 Last Admin: 04/15/17 12:56 Dose: 1 gm - Exam Wound/Incisions: Dressing Dry and Intact General: Alert, Cooperative, No Acute Distress Lungs: Normal Respiratory Effort Extremities: Other (NVS intact for RUE. Active right elbow, wrist, hand motion noted.) - Problem List Review Problem List Initiated/Reviewed/Updated: Yes - My Orders Last 24 Hours: Active Orders 24 hr Category Date Time Status Patient Status [ADT] Routine ADT 04/15/17 18:00 Active Accu Check [Blood Glucose Check, Bedside] [RC] Care 04/15/17 15:25 Active QIDACANDBED Ready for Discharge [RC] PER UNIT ROUTINE Care 04/16/17 08:18 Active Telemetry Monitoring [Cardiac Monitoring] [RC] . Care 04/15/17 15:26 Active DIRECTED Regular Diet [DIET] Diet 04/15/17 Dinner Active Acetaminophen/HYDROcodone [[place] 325-5 MG] Med 04/15/17 15:59 Active 2 tab PO Q4H PRN Albuterol [Proventil HFA] Med 04/15/17 13:58 Active 0 gm INH Q4H PRN Aspirin [Ecotrin] Med 04/16/17 09:00 Active 325 mg PO DAILY Dextrose 50% in Water Med 04/15/17 15:26 Active 50 ml IVPUSH ASDIRECTED PRN Docusate Sodium [Colace] Med 04/15/17 21:00 Active 100 mg PO BID Famotidine [Pepcid] Med 04/15/17 21:00 Active 20 mg PO Q12H Hydrochlorothiazide Med 04/16/17 09:00 Active 12.5 mg PO DAILY Insulin Aspart [NovoLOG] Med 04/15/17 17:00 Active See Protocol SUBCUT QIDACANDBED Losartan [Cozaar] Med 04/16/17 09:00 Active 50 mg PO DAILY Patient's Own Medication [Ptom] Med 04/16/17 09:00 Active 1 each PO DAILY Rosuvastatin [Crestor] Med 04/16/17 09:00 Active 20 mg PO DAILY metFORMIN [Glucophage] Med 04/15/17 21:00 Active 500 mg PO BID Medication Orders Hydrocodone Bitart/Acetaminophen ([place] 325-5 Mg) 2 tab PO Q4H PRN PRN Reason: Pain Last Admin: 04/16/17 10:41 Dose: 2 tab Admin: 04/16/17 07:00 Dose: 2 tab Admin: 04/15/17 21:09 Dose: 2 tab Albuterol (Proventil Hfa) 0 gm INH Q4H PRN PRN Reason: Shortness of Breath Aspirin (Ecotrin) 325 mg PO DAILY [facility] Last Admin: 04/16/17 09:03 Dose: 325 mg Bisacodyl (Dulcolax) 5 mg PO DAILY PRN PRN Reason: Constipation Cyclobenzaprine HCl (Flexeril) 10 mg PO TID PRN PRN Reason: Spasms Last Admin: 04/16/17 13:14 Dose: 10 mg Admin: 04/16/17 07:00 Dose: 10 mg Admin: 04/15/17 16:28 Dose: 10 mg Dextrose/Water (Dextrose 50% In Water) 50 ml IVPUSH ASDIRECTED PRN PRN Reason: Hypoglycemia Docusate Sodium (Colace) 100 mg PO BID [facility] Last Admin: 04/16/17 09:02 Dose: 100 mg Admin: 04/15/17 21:08 Dose: 100 mg Famotidine (Pepcid) 20 mg PO Q12H [facility] Last Admin: 04/16/17 09:03 Dose: 20 mg Admin: 04/15/17 21:09 Dose: 20 mg Hydrochlorothiazide (Hydrochlorothiazide) 12.5 mg PO DAILY [facility] Last Admin: 04/16/17 09:03 Dose: 12.5 mg Insulin Aspart (Novolog) 0 unit SUBCUT QIDACANDBED [facility] PRN Reason: Protocol Last Admin: 04/16/17 12:32 Dose: Not Given Admin: 04/16/17 09:06 Dose: 1 units Admin: 04/15/17 21:12 Dose: 1 units Admin: 04/15/17 17:04 Dose: 1 units Losartan Potassium (Cozaar) 50 mg PO DAILY [facility] Last Admin: 04/16/17 09:03 Dose: 50 mg Magnesium Hydroxide (Milk Of Magnesia) 30 ml PO BID PRN PRN Reason: Constipation Metformin HCl (Glucophage) 500 mg PO BID [facility] Last Admin: 04/16/17 09:03 Dose: 500 mg Admin: 04/15/17 21:09 Dose: 500 mg Morphine Sulfate (Morphine) 2 mg IVPUSH Q2H PRN PRN Reason: Breakthrough Pain Naloxone HCl (Narcan) 0.1 mg IVPUSH Q5M PRN PRN Reason: Oversedation Ondansetron HCl (Zofran) 4 mg IVPUSH Q6H PRN PRN Reason: Nausea/Vomiting Ubidecarenone 90mg 1 each PO DAILY [facility] Last Admin: 04/16/17 10:00 Dose: Rosuvastatin Calcium (Crestor) 20 mg PO DAILY [facility] Last Admin: 04/16/17 09:03 Dose: 20 mg Senna (Senna) 8.6 mg PO BID PRN PRN Reason: Constipation Sodium Chloride (Saline Flush) 10 ml FLUSH ASDIRECTED PRN PRN Reason: Keep Vein Open - Assessment Assessment (Free Text/Narrative):: POD#1 - right TSA - Plan Plan (Free Text/Narrative):: 1. Discharge to home today. 2. Outpatient therapy. 3. 325mg ASA daily. The pt's case was discussed with Dr. Hernandez today.
--- NOTE | 2017-04-16 13:17 | PCM.DCSUM1 ---
Discharge Summary - Hospital Course Brief History: Juancho is a 61 yo male who underwent right total shoulder arthroplasty with Dr. Hernandez on 04-15-2017. The procedure was completed under general anesthesia with regional block. The pt tolerated the procedure well and was admitted to the Medical-Surgical Unit. Medical management was provided by the Hospitalist service. The pt's Hospital course was uneventful. The pt's Hgb on POD#1 was 13.3. On POD#1, 325mg ASA daily was initiated for VTE prophylaxis. SCDs and TEDs were also ordered. A Mepilex dressing was placed at the incision site at the time of surgery and remained clean and dry. The pt participated in therapy and progressed well. On POD#1, the pt was deemed appropriate to discharge to home with his . - Discharge Data Discharge Date: 04/16/17 Discharge Disposition: Home, Self-Care 01 Condition: Good - Patient Summary/Data Consults: Consultations 04/15/17 06:33 Consult to Physician [CONS] Routine OT Evaluation and Treatment [CONS] Routine 04/15/17 06:37 PT Evaluation and Treatment [CONS] Routine - Patient Instructions Diet: Usual Diet as Tolerated Activity: Apply Ice, As Tolerated, Elevate Extremity Driving: Do Not Drive Showering/Bathing: May Shower Wound/Incision Care: Keep Operative Site/Wound Site Clean and Dry, Do NOT Change Dressing Notify Provider of: Fever, Increased Pain, Swelling and Redness, Drainage, Nausea and/or Vomiting Other/Special Instructions: Please get up and moving around every hour while awake. This helps to prevent blood clots. Please take a 325mg aspirin daily. This also helps to prevent blood clots. The aspirin is not being used for pain management, but rather for blood clot prevention so please try not to miss a dose of the medication. Please wear the immobilizer as directed. You may schedule for physical therapy. The therapist will use the [facility] protocol. Place ice to the limb. Have a towel between the blue ice pad and your skin. Keep the Mepilex dressing in place until follow-up at the Clinic. You may use the pain medication as needed. The medication may cause drowsiness and/or constipation. Please contact your primary care provider for instructions if you are constipated. Please call the Clinic with other concerns - [phone]. - Discharge Plan Prescriptions/Med Rec: Acetaminophen/HYDROcodone [[place] 325-5 MG] 1 - 2 tab PO Q4H PRN #60 tablet PRN Reason: Pain Cyclobenzaprine [Flexeril] 10 mg PO TID PRN #40 tablet PRN Reason: Spasms Home Medications: Home Meds metFORMIN HCl [Metformin HCl] 500 mg PO BID 10/29/15 [History] Losartan/Hydrochlorothiazide [Losartan-HCTZ 50-12.5 MG] 1 tab PO DAILY 11/19/15 [History] atorvaSTATin Calcium [Atorvastatin Calcium] 80 mg PO DAILY 11/19/15 [History] Albuterol Sulfate [Proair Hfa] 2 puff INH Q4H PRN 04/14/17 [History] Ubidecarenone [COQ-10] 200 mg PO DAILY 04/14/17 [History] Acetaminophen/HYDROcodone [[place] 325-5 MG] 1 - 2 tab PO Q4H PRN #60 tablet 04/16 [Rx] Aspirin [Ecotrin] 325 mg PO DAILY tab.ec 04/16/17 [Rx] Bisacodyl [Dulcolax] 5 mg PO DAILY PRN tablet 04/16/17 [Rx] Cyclobenzaprine [Flexeril] 10 mg PO TID PRN #40 tablet 04/16/17 [Rx] Docusate Sodium [Colace] 100 mg PO BID cap 04/16/17 [Rx] Famotidine [Pepcid] 20 mg PO Q12H tablet 04/16/17 [Rx] Magnesium Hydroxide [Milk of Magnesia] 30 ml PO BID PRN cup 04/16/17 [Rx] Sennosides [Senna] 8.6 mg PO BID PRN tablet 04/16/17 [Rx] Patient Handouts: Acetaminophen; Hydrocodone tablets or capsules, Cyclobenzaprine tablets, Shoulder Joint Replacement, Shoulder Joint Replacement , Care After, Aspirin, ASA oral tablets Referrals: Ирина Spears PA-C [Phys[facility] [employer]] - (Please follow up with Ирина Spears PA-C on April 23 at 11:15 and April 30 at 1130.) - Patient Data Vitals - Most Recent: Last Vital Signs Temp 97.3 F 04/16/17 12:04 Pulse 70 04/16/17 12:04 Resp 18 04/16/17 12:04 BP 127/78 04/16/17 12:04 Pulse Ox 94 L 04/16/17 12:04 Weight - Most Recent: 229 lb 8 oz I&O - Last 24 hours: Intake & Output 04/15/17 04/16/17 04/16/17 22:59 06:59 14:59 Intake Total 3440 1500 180 Output Total 1000 Balance 3440 500 180 Lab Results - Last 24 hrs: Laboratory Results - last 24 hr 04/15/17 04/15/17 04/16/17 Range/Units 17:02 21:12 07:05 WBC (4.23-9.07) K/mm3 RBC (4.63-6.08) M/mm3 Hgb (13.7-17.5) gm/L Hct (40.1-51.0) % MCV (79.0-92.2) fl MCH (25.7-32.2) pg MCHC (32.2-35.5) g/dl RDW Std Deviation (35.1-43.9) fL Plt Count (163-337) K/mm3 MPV (9.4-12.3) fl Neut % (Auto) (34.0-67.9) % Lymph % (Auto) (21.8-53.1) % [place] % (Auto) (5.3-12.2) % Eos % (Auto) (0.8-7.0) Baso % (Auto) (0.1-1.2) % Neut # (Auto) (1.78-5.38) K/mm3 Lymph # (Auto) (1.32-3.57) K/mm3 [place] # (Auto) (0.30-0.82) K/mm3 Eos # (Auto) (0.04-0.54) K/mm3 Baso # (Auto) (0.01-0.08) K/mm3 Manual Slide Review Sodium (136-145) mEq/L Potassium (3.5-5.1) mEq/L Chloride (98-107) mEq/L Carbon Dioxide (21-32) mEq/L Anion Gap (5-15) BUN (7-18) mg/dL Creatinine (0.7-1.3) mg/dL Est Cr Clr Drug Dosing mL/min Estimated GFR (MDRD) (>60) mL/min BUN/Creatinine Ratio (14-18) Glucose (74-106) mg/dL POC Glucose 184 H 176 H 154 H (70-105) mg/dL Calcium (8.5-10.1) mg/dL Total Bilirubin (0.2-1.0) mg/dL AST (15-37) U/L ALT (16-63) U/L Alkaline Phosphatase (46-116) U/L Total Protein (6.4-8.2) g/dl Albumin (3.4-5.0) g/dl Globulin gm/dL Albumin/Globulin Ratio (1-2) 04/16/17 04/16/17 04/16/17 Range/Units 08:06 08:06 11:29 WBC 15.14 H (4.23-9.07) K/mm3 RBC 4.43 L (4.63-6.08) M/mm3 Hgb 13.3 L (13.7-17.5) gm/L Hct 38.8 L (40.1-51.0) % MCV 87.6 (79.0-92.2) fl MCH 30.0 (25.7-32.2) pg MCHC 34.3 (32.2-35.5) g/dl RDW Std Deviation 41.0 (35.1-43.9) fL Plt Count 282 (163-337) K/mm3 MPV 9.5 (9.4-12.3) fl Neut % (Auto) 75.8 H (34.0-67.9) % Lymph % (Auto) 13.1 L (21.8-53.1) % [place] % (Auto) 10.4 (5.3-12.2) % Eos % (Auto) 0.3 L (0.8-7.0) Baso % (Auto) 0.1 (0.1-1.2) % Neut # (Auto) 11.47 H (1.78-5.38) K/mm3 Lymph # (Auto) 1.99 (1.32-3.57) K/mm3 [place] # (Auto) 1.57 H (0.30-0.82) K/mm3 Eos # (Auto) 0.05 (0.04-0.54) K/mm3 Baso # (Auto) 0.01 (0.01-0.08) K/mm3 Manual Slide Review Normal smear Sodium 135 L (136-145) mEq/L Potassium 4.0 (3.5-5.1) mEq/L Chloride 99 (98-107) mEq/L Carbon Dioxide 26 (21-32) mEq/L Anion Gap 14.0 (5-15) BUN 23 H (7-18) mg/dL Creatinine 1.6 H (0.7-1.3) mg/dL Est Cr Clr Drug Dosing 57.80 mL/min Estimated GFR (MDRD) 44 (>60) mL/min BUN/Creatinine Ratio 14.4 (14-18) Glucose 135 H (74-106) mg/dL POC Glucose 135 H (70-105) mg/dL Calcium 9.0 (8.5-10.1) mg/dL Total Bilirubin 0.7 (0.2-1.0) mg/dL AST 18 (15-37) U/L ALT 33 (16-63) U/L Alkaline Phosphatase 34 L (46-116) U/L Total Protein 7.0 (6.4-8.2) g/dl Albumin 3.6 (3.4-5.0) g/dl Globulin 3.4 gm/dL Albumin/Globulin Ratio 1.1 (1-2) Med Orders - Current: Current Medications Hydrocodone Bitart/Acetaminophen ([place] 325-5 Mg) 2 tab PO Q4H PRN PRN Reason: Pain Last Admin: 04/16/17 10:41 Dose: 2 tab Albuterol (Proventil Hfa) 0 gm INH Q4H PRN PRN Reason: Shortness of Breath Aspirin (Ecotrin) 325 mg PO DAILY [facility] Last Admin: 04/16/17 09:03 Dose: 325 mg Bisacodyl (Dulcolax) 5 mg PO DAILY PRN PRN Reason: Constipation Cyclobenzaprine HCl (Flexeril) 10 mg PO TID PRN PRN Reason: Spasms Last Admin: 04/16/17 13:14 Dose: 10 mg Dextrose/Water (Dextrose 50% In Water) 50 ml IVPUSH ASDIRECTED PRN PRN Reason: Hypoglycemia Docusate Sodium (Colace) 100 mg PO BID [facility] Last Admin: 04/16/17 09:02 Dose: 100 mg Famotidine (Pepcid) 20 mg PO Q12H [facility] Last Admin: 04/16/17 09:03 Dose: 20 mg Hydrochlorothiazide (Hydrochlorothiazide) 12.5 mg PO DAILY [facility] Last Admin: 04/16/17 09:03 Dose: 12.5 mg Insulin Aspart (Novolog) 0 unit SUBCUT QIDACANDBED [facility] PRN Reason: Protocol Last Admin: 04/16/17 12:32 Dose: Not Given Losartan Potassium (Cozaar) 50 mg PO DAILY [facility] Last Admin: 04/16/17 09:03 Dose: 50 mg Magnesium Hydroxide (Milk Of Magnesia) 30 ml PO BID PRN PRN Reason: Constipation Metformin HCl (Glucophage) 500 mg PO BID [facility] Last Admin: 04/16/17 09:03 Dose: 500 mg Morphine Sulfate (Morphine) 2 mg IVPUSH Q2H PRN PRN Reason: Breakthrough Pain Naloxone HCl (Narcan) 0.1 mg IVPUSH Q5M PRN PRN Reason: Oversedation Ondansetron HCl (Zofran) 4 mg IVPUSH Q6H PRN PRN Reason: Nausea/Vomiting Ubidecarenone 90mg 1 each PO DAILY [facility] Last Admin: 04/16/17 10:00 Dose: Not Given Rosuvastatin Calcium (Crestor) 20 mg PO DAILY [facility] Last Admin: 04/16/17 09:03 Dose: 20 mg Senna (Senna) 8.6 mg PO BID PRN PRN Reason: Constipation Sodium Chloride (Saline Flush) 10 ml FLUSH ASDIRECTED PRN PRN Reason: Keep Vein Open Discontinued Medications Bupivacaine HCl (Marcaine 0.25%) Confirm Administered Dose 30 ml .ROUTE .STK- MED ONE Stop: 04/15/17 08:08 Last Admin: 04/15/17 12:50 Dose: 20 ml Cefazolin Sodium (Ancef) Confirm Administered Dose 2 gm .ROUTE .STK-MED ONE Stop: 04/15/17 08:08 Last Admin: 04/15/17 12:47 Dose: 2 gm Cefazolin Sodium (Ancef) Confirm Administered Dose 2 gm .ROUTE .STK-MED ONE Stop: 04/15/17 11:29 Dexamethasone (Dexamethasone) Confirm Administered Dose 20 mg .ROUTE .STK-MED ONE Stop: 04/15/17 10:29 Diphenhydramine HCl (Benadryl) 25 mg IVPUSH Q4H PRN PRN Reason: Nausea Diphenhydramine HCl (Benadryl) 25 mg IVPUSH Q6H PRN PRN Reason: Pruritis Stop: 04/15/17 18:00 Epinephrine HCl (Adrenalin 1:1000) Confirm Administered Dose 1 mg .ROUTE .STK- MED ONE Stop: 04/15/17 06:15 Fentanyl (Sublimaze) Confirm Administered Dose 250 mcg .ROUTE .STK-MED ONE Stop: 04/15/17 08:52 Fentanyl (Sublimaze) 50 mcg IVPUSH Q5M PRN PRN Reason: Pain Stop: 04/15/17 18:00 Hydromorphone HCl (Dilaudid) 0.5 mg IVPUSH Q15M PRN PRN Reason: Pain (severe 7-10) Stop: 04/15/17 18:00 Last Admin: 04/15/17 14:16 Dose: 0.5 mg Lactated Ringer's (Ringers, Lactated) 1,000 mls @ 125 mls/hr IV ASDIRECTED [facility] Stop: 04/15/17 16:00 Last Admin: 04/15/17 07:30 Dose: 125 mls/hr Cefazolin Sodium/Dextrose 2 gm (/ Premix) 50 mls @ 100 mls/hr IV Q8H [facility] Stop: 04/16/17 08:44 Last Admin: 04/16/17 09:06 Dose: 100 mls/hr Lidocaine HCl (Xylocaine-Mpf 1%) Confirm Administered Dose 2 mls @ as directed .ROUTE .STK-MED ONE Stop: 04/15/17 08:52 Lidocaine HCl (Xylocaine-Mpf 1%) Confirm Administered Dose 4 mls @ as directed .ROUTE .STK-MED ONE Stop: 04/15/17 10:29 Lactated Ringer's (Ringers, Lactated) Confirm Administered Dose 1,000 mls @ as directed .ROUTE .STK-MED ONE Stop: 04/15/17 11:35 Promethazine HCl 6.25 mg/ (Sodium Chloride) 50.25 mls @ 100 mls/hr IV ONETIME PRN PRN Reason: Nausea/Vomiting Stop: 04/15/17 18:00 Acetaminophen (Ofirmev) 100 mls @ 400 mls/hr IV NOW ONE Stop: 04/15/17 17:44 Last Admin: 04/15/17 17:06 Dose: 400 mls/hr Iodine (Iodine 2% Mild Tincture) Confirm Administered Dose 30 ml .ROUTE .STK- MED ONE Stop: 04/15/17 08:08 Last Admin: 04/15/17 12:43 Dose: 18 ml Ketorolac Tromethamine (Toradol) 15 mg IVPUSH Q6H PRN PRN Reason: Pain Last Admin: 04/16/17 01:16 Dose: 15 mg Lidocaine/Sodium Bicarbonate (Buffered Lidocaine 1% In Ns 8.4%) 0.25 ml IV ONETIME PRN PRN Reason: Prior to IV Start Stop: 04/15/17 16:00 Last Admin: 04/15/17 07:30 Dose: 0.25 ml Meperidine HCl (Demerol) 12.5 mg IVPUSH ONETIME PRN PRN Reason: Shivering Stop: 04/15/17 18:00 Midazolam HCl (Versed 1 Mg/Ml) Confirm Administered Dose 2 mg .ROUTE .STK-MED ONE Stop: 04/15/17 08:52 Non-Formulary Medication (Losartan/Hydrochlorothiazide) 1 tab PO DAILY [facility] Ondansetron HCl (Zofran) Confirm Administered Dose 4 mg .ROUTE .STK-MED ONE Stop: 04/15/17 10:29 Oxycodone/Acetaminophen (Percocet 325-5 Mg) 1 - 2 tab PO Q4H PRN PRN Reason: Pain Propofol (Diprivan 20 Ml) Confirm Administered Dose 200 mg .ROUTE .STK-MED ONE Stop: 04/15/17 10:28 Rocuronium [place] (Zemuron) Confirm Administered Dose 50 mg .ROUTE .STK-MED ONE Stop: 04/15/17 10:29 Rocuronium [place] (Zemuron) Confirm Administered Dose 50 mg .ROUTE .STK-MED ONE Stop: 04/15/17 12:06 Ropivacaine (Naropin 0.5%) Confirm Administered Dose 30 ml .ROUTE .STK-MED ONE Stop: 04/15/17 06:15 Tranexamic Acid (Cyklokapron) Confirm Administered Dose 1,000 mg .ROUTE .STK- MED ONE Stop: 04/15/17 08:08 Last Admin: 04/15/17 12:55 Dose: 1,000 mg Vancomycin HCl (Vancomycin) Confirm Administered Dose 1 gm .ROUTE .STCiviQ-MED ONE Stop: 04/15/17 08:08 Last Admin: 04/15/17 12:56 Dose: 1 gm *Q Meaningful Use (DIS) - VTE *Q VTE Criteria *Q: - Stroke *Q Stroke Criteria *Q: - AMI *Q AMI Criteria *Q:
--- NOTE | 2017-04-16 13:39 | PCM48HPAN ---
Post Anesthesia Note - EVALUATION WITHIN 48HRS OF ANESTHETIC Vital Signs in Normal Range: Yes Patient Participated in Evaluation: No Respiratory Function Stable: Yes Airway Patent: Yes Cardiovascular Function Stable: Yes Hydration Status Stable: Yes Pain Control Satisfactory: Yes Nausea and Vomiting Control Satisfactory: Yes Mental Status Recovered: Yes - COMMENTS/OBSERVATIONS Free Text/Narrative:: Patient discharge prior to assessment. Report from nursing staff was negative
--- NOTE | 2017-04-22 09:11 | PCM.OPNOTE ---
- General Post-Op/Procedure Note Date of Surgery/Procedure: 04/12/17 Operative Procedure(s): right total shoulder arthroplasty Pre Op Diagnosis: right glenohumeral arthrosis Post-Op Diagnosis: Same Anesthesia Technique: General ET Tube, Regional Block Primary Surgeon: Phillpi Hernandez Anesthesia Provider: Kenny Gomes Paperhanger Contractor: Ирина Separs Paperhanger Contractor: Julee Garcia EBL in mLs: 350 Complications: None Condition: Good
--- NOTE | 2017-04-22 13:57 | OR ---
DATE OF OPERATION: 04/15/2017 SURGEON: Phillip Hernandez MD OPERATION PERFORMED: Right total shoulder arthroplasty. PREOPERATIVE DIAGNOSIS: Right glenohumeral arthrosis. POSTOPERATIVE DIAGNOSIS: Right glenohumeral arthrosis. ANESTHESIA: General endotracheal intubation with regional interscalene block. ANESTHESIA PROVIDER: Kenny Gomes. HEAT TREAT INSPECTOR: Ирина Spears PA-C, and Julee Garcia LPN. ESTIMATED BLOOD LOSS: 350 mL. COMPLICATIONS: None. CONDITION: Stable. IMPLANTS: 1. Arthrex size 54 x 21 mm humeral head. 2. Arthrex size 9 humeral stem. 3. Arthrex large glenoid polyethylene. DESCRIPTION OF PROCEDURE: The patient was identified in the preop holding area. Proper site was marked and identified by the surgeon. The patient was taken back to the operating theatre where after adequate anesthesia, the patient's right shoulder was sterilely prepped and draped in the usual sterile fashion. Time-out was performed. The patient received 2 g IV Ancef. The patient was placed in a reverse Trendelenburg position. At this time, standard deltopectoral incision was made. The cephalic vein was identified. The deltopectoral interval was identified. Blunt dissection was taken down the subacromial space as well as the subdeltoid space and all adhesions were removed. At this time, the clavipectoral fascia was incised and conjoined tendon was retracted medially. The anterior humeral circumflex vessels were identified and ligated using an 0 Vicryl stick tie. At this time, the biceps tendon was identified and the interval was opened. A subpectoral tenodesis was then performed with a #2 FiberWire, and the biceps tendon was then resected with use of curved Lares. The biceps was followed back all the way back to the glenoid in the rotator interval. At this time, the peel back was done of the subscapularis tendon and the tag stitch was placed in the upper outer corner. The patient was noted to have severe glenohumeral arthrosis. The rotator cuff appeared intact. There were no signs of tear. Guide pin was placed in the upper outer edge, down the canal. Starter awl was then placed and then neck cut was completed for and 30 degrees of retroversion for an anatomic total shoulder. Broaching was then done and was found to be in a size 9 stem. This trial was then left and attention was turned to the glenoid. Posterior and anterior retractors were placed on the glenoid. The remaining biceps as well as anterior posterior labrum were then removed along with the removal anterior capsule. Once there was good visualization, the guidepin was placed in a center-center portion of the glenoid. It was sized to be a large glenoid polyethylene. At this time, the reamer for the large glenoid polyethylene was then used and it was found to have good resection of the remaining cartilage and down to subchondral bone. At this time, centered drill hole was then drilled along with the superior and inferior drill holes. Once this was completed, cement was mixed on the back table. This was packed on the large glenoid polyethylene and this was then impacted into place. Attention was turned back to the humerus, size 9 humeral stem was then placed. After the sutures, limbs were loaded on it for the Arthrex subscapularis repair technique. This was then impacted into place and the version was set and locked. A trial humeral head was then placed with 54 x 21 and was dialed in for the proper rotation. The humerus was then reduced. It was brought through a trial range of motion and found to be stable throughout range of motion with good bounce back on posterior translation. C-arm fluoroscopy was also showed all the components to be in proper position. At this time, the 54 x 21 mm humeral head was then impacted into place. The subscapularis repair was then done with the usual Arthrex repair technique. At this time, 1 L dilute Betadine solution was irrigated through the shoulder along with 3 L pulse lavage irrigation with Ancef. Vancomycin powder was placed along with topical tranexamic acid. The rotator interval was then tacked, 2-0 Vicryl was used subcutaneously, and Prineo was used for the skin. The patient tolerated the procedure well and sent to PACU in stable condition. GAUTAM /[id number]
== END 2017-04-16 13:20 | disposition home or self-care (01) | DRG 322 ==
LOC: UNDOADMIN 06:57 → JD.MS 06:57
PROVIDERS: ADMIT Orthopaedic Surgery; ATTEND Orthopaedic Surgery
PROC: 0RRJ0JZ Replacement of Right Shoulder Joint with Synthetic Substitute, Open Approach (ICD-10-PCS; principal; 2017-04-15)
DX: M19.011 Primary osteoarthritis, right shoulder (principal); E66.3 Overweight; E11.9 Type 2 diabetes mellitus without complications; I10 Essential (primary) hypertension; Z79.84 Long term (current) use of oral hypoglycemic drugs; Z79.82 Long term (current) use of aspirin; Z79.899 Other long term (current) drug therapy; E78.5 Hyperlipidemia, unspecified; I25.2 Old myocardial infarction; Z87.891 Personal history of nicotine dependence; Z68.29 Body mass index [BMI] 29.0-29.9, adult; I25.10 Atherosclerotic heart disease of native coronary artery without angina pectoris
CPT/HCPCS: 01638; 36415; 64415; 73020-26-RT; 73020-RT; 76000; 76000-26; 80053; 82962; 85025; 97110-GP; 97116-GP; 97162-GP; 97165-GO; 97535-GO; 99231; A9270-GY; C1713; C1776; J0171; J0690; J1100; J1170; J1815-GY; J1885; J2250; J2405; J2704; J2795; J3010; J3370; J3490; J7120

== ENCOUNTER 2017-07-16 06:18 | Day surgery (SDC) | payer BC ==
[~2017-07-16 06:18] MED LIST changes: -Acetaminophen/oxyCODONE 325-5 MG Tab PO PRN; -Bisacodyl 5 MG Tab PO PRN; -EPINEPHrine 1 MG/ML SDV ONE; +Lidocaine 1%/Sod Bicarbonate in NS 8.4% 1 ML Syringe IDERM PRN; -Lidocaine 1%/Sod Bicarbonate in NS 8.4% 1 ML Syringe IV PRN; -Magnesium Hydroxide 400 MG/5 ML Susp 30 ML Cup PO PRN; -Morphine 2 MG/ML Syringe IVPUSH PRN; -Naloxone 0.4 MG/ML SDV IVPUSH PRN; -Ondansetron 4 MG/2 ML SDV IVPUSH PRN; -Ropivacaine 0.5% 5 MG/ML 30 ML SDV ONE; -Sennosides 8.6 MG Tab PO PRN; -diphenhydrAMINE 50 MG/ML SDV IVPUSH PRN
[2017-07-16] MEDS ORDERED: Propofol 200 MG/20 ML SDV ONE (06:51)
[2017-07-16] MEDS ORDERED: fentaNYL 100 MCG/2 ML SDV ONE (06:52)
[2017-07-16] MEDS ORDERED: Midazolam 1 MG/ML 2 ML SDV ONE (06:52)
[2017-07-16] MEDS ORDERED: Lidocaine 1% 4 ML ONE (06:53)
--- NOTE | 2017-07-16 07:01 | PCM.PREANE ---
Preanesthetic Assessment - Procedure Proposed Procedure: R shoulder manipulation under anesthesia - Anesthesia/Transfusion/Family Hx Anesthesia History: Prior Anesthesia Without Reaction Family History of Anesthesia Reaction: No Transfusion History: No Prior Transfusion(s) Intubation History: Unknown - Review of Systems General: No Symptoms Pulmonary: No Symptoms Cardiovascular: Other (DE, HLD, ) Gastrointestinal: No Symptoms Neurological: No Symptoms Other: Reports: Diabetes - Physical Assessment NPO Status Date: 07/15/17 NPO Status Time: 19:30 Pulse: 57 O2 Sat by Pulse Oximetry: 96 Respiratory Rate: 16 Blood Pressure: 144/97 Temperature: 36.6 C Height: 1.88 m Weight: 103.419 kg ASA Class: 2 Mental Status: Alert & Oriented x3 Dentition: Reports: Normal Dentition Thyro-Mental Finger Breadths: 3 Mouth Opening Finger Breadths: 3 ROM/Head Extension: Full Lungs: Clear to Auscultation, Normal Respiratory Effort Cardiovascular: Regular Rate, Regular Rhythm - Allergies Allergies/Adverse Reactions: Allergies Allergy/AdvReac Type Severity Reaction Status Date / Time No Known Allergies Allergy Verified 07/15/17 10:54 - Blood Blood Available: No Product(s) Available: None - Anesthesia Plan Pre-Op Medication Ordered: None - Acknowledgements Anesthesia Type Planned: MAC Pt an Appropriate Candidate for the Planned Anesthesia: Yes Alternatives and Risks of Anesthesia Discussed w Pt/Guardian: Yes Pt/Guardian Understands and Agrees with Anesthesia Plan: Yes PreAnesthesia Questionnaire HEENT History: Reports: None Other HEENT History: states spotty vision to right eye Cardiovascular History: Reports: High Cholesterol, Hypertension, [place], Other (See Below) Other Cardiovascular History: heart disease, heart catheterization Respiratory History: Reports: None Other Respiratory History: possible gardner's lung Gastrointestinal History: Reports: None Genitourinary History: Reports: None PUBLICATIONS INSPECTOR History: Reports: None Musculoskeletal History: Reports: None Neurological History: Reports: Migraines Psychiatric History: Reports: None Endocrine/Metabolic History: Reports: Diabetes, Type II Hematologic History: Reports: None Immunologic History: Reports: None Oncologic (Cancer) History: Reports: None Dermatologic History: Reports: None - Infectious Disease History Infectious Disease History: Reports: Mumps, Shingles - Past Surgical History HEENT Surgical History: Reports: LASIK Cardiovascular Surgical History: Reports: None Respiratory Surgical History: Reports: None GI Surgical History: Reports: Appendectomy, Colonoscopy, Hernia Repair/Other Female Surgical History: Reports: None Male Surgical History: Reports: None Endocrine Surgical History: Reports: None Neurological Surgical History: Reports: None Musculoskeletal Surgical History: Reports: Other (See Below) Other Musculoskeletal Surgeries/Procedures:: 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, right total shoulder replacement Oncologic Surgical History: Reports: None Dermatological Surgical History: Reports: None - SUBSTANCE USE Smoking Status *Q: Never Smoker Second Hand Smoke Exposure: No Days Per Week of Alcohol Use: 2 Number of Drinks Per Day: 1 Total Drinks Per Week: 2 Recreational Drug Use History: No - HOME MEDS Home Medications: Home Meds metFORMIN HCl [Metformin HCl] 500 mg PO BID 10/29/15 [History] Losartan/Hydrochlorothiazide [Losartan-HCTZ 50-12.5 MG] 1 tab PO DAILY 11/19/15 [History] atorvaSTATin Calcium [Atorvastatin Calcium] 80 mg PO DAILY 11/19/15 [History] Albuterol Sulfate [Proair Hfa] 2 puff INH Q4H PRN 04/14/17 [History] Ubidecarenone [COQ-10] 90 mg PO DAILY 04/14/17 [History] Aspirin 81 mg PO DAILY 07/15/17 [History] Cholecalciferol (Vitamin D3) [Vitamin D3] 1,000 unit PO DAILY 07/15/17 [History] Acetaminophen/HYDROcodone [[place] 325-5 MG] 1 - 2 tab PO Q6H PRN #40 tablet 07/16 [Rx] Cyclobenzaprine [Flexeril] 10 mg PO Q8H PRN #40 tab 07/16/17 [Rx] - CURRENT (IN HOUSE) MEDS Current Meds: Current Medications Lactated Ringer's (Ringers, Lactated) 1,000 mls @ 125 mls/hr IV ASDIRECTED [facility] Lidocaine/Sodium Bicarbonate (Buffered Lidocaine 1% In Ns 8.4%) 0.25 ml IDERM ONETIME PRN PRN Reason: Prior to IV Start Sodium Chloride (Saline Flush) 10 ml FLUSH ASDIRECTED PRN PRN Reason: Keep Vein Open Discontinued Medications Fentanyl (Sublimaze) Confirm Administered Dose 100 mcg .ROUTE .STK-MED ONE Stop: 07/16/17 06:53 Lidocaine HCl (Xylocaine-Mpf 1%) Confirm Administered Dose 4 mls @ as directed .ROUTE .STK-MED ONE Stop: 07/16/17 06:54 Midazolam HCl (Versed 1 Mg/Ml) Confirm Administered Dose 2 mg .ROUTE .STK-MED ONE Stop: 07/16/17 06:53 Propofol (Diprivan 20 Ml) Confirm Administered Dose 200 mg .ROUTE .STK-MED ONE Stop: 07/16/17 06:52
[2017-07-16] MEDS ORDERED: Ketamine 500 mg/10 ML MDV ONE (07:21)
[2017-07-16] MEDS ORDERED: Lidocaine 1% 2 ML ONE (07:21)
--- NOTE | 2017-07-16 07:52 | PCM48HPAN ---
Post Anesthesia Note - EVALUATION WITHIN 48HRS OF ANESTHETIC Vital Signs in Normal Range: Yes Respiratory Function Stable: Yes Airway Patent: Yes Cardiovascular Function Stable: Yes Hydration Status Stable: Yes Pain Control Satisfactory: Yes Nausea and Vomiting Control Satisfactory: Yes Mental Status Recovered: Yes Pulse Rate: 63 SaO2: 94 Resp Rate: 16 Temperature: 36.5 C
[2017-07-16 07:54] VITALS: BP 159/96
--- NOTE | 2017-07-16 09:56 | CR ---
Right shoulder: Three fluoroscopic spot views were obtained utilizing C-arm device of the right shoulder. Right shoulder prosthesis is seen. Prosthesis appears aligned. Underlying bony structures appear intact as seen on this exam. Fluoroscopy time given is 5.1 seconds. Impression: 1. Findings as noted above. Diagnostic code #2
--- NOTE | 2017-07-25 22:29 | PCM.OPNOTE ---
- General Post-Op/Procedure Note Date of Surgery/Procedure: 07/16/17 Operative Procedure(s): right total shoulder arthroplasty manipulation under anesthesia Pre Op Diagnosis: right shoulder arthrofibrosis Post-Op Diagnosis: Same Anesthesia Technique: General LMA Primary Surgeon: Phillip Hernandez Anesthesia Provider: Kenny Gomes [employer] Representative: Ирина Spears in mLs: 0 Complications: None Condition: Good
--- NOTE | 2017-07-25 23:01 | OR ---
DATE OF OPERATION: 07/16/2017 SURGEON: Phillip Hernandez MD OPERATION PERFORMED: Right total shoulder arthroplasty, manipulation under anesthesia. PREOPERATIVE DIAGNOSIS: Right shoulder arthrofibrosis. POSTOPERATIVE DIAGNOSIS: Right shoulder arthrofibrosis. ANESTHESIA TECHNIQUE: General LMA. ANESTHESIA PROVIDER: Kenny Gomes. OUTREACH ASSISTANT: Ирина Spears PA-C. ESTIMATED BLOOD LOSS: Not applicable. COMPLICATIONS: None. CONDITION: Stable. DESCRIPTION OF PROCEDURE: The patient was identified in the preop holding area. Proper site was marked and identified by the surgeon. The patient was taken back to the operating theater, where after adequate anesthesia, the patient's right shoulder was manipulated under anesthesia. Before manipulation, the patient had roughly 80 degrees of forward elevation, 40 degrees of abduction, and 10 to 15 degrees of external rotation. At this time, the patient did have a gentle range of motion done. There was no gross abnormalities just the patient did have significant frozen shoulder. At this time, after manipulation under anesthesia, the patient had 160 degrees of forward elevation, 160 degrees of abduction, and had 50 to 60 degrees of external rotation. Under C-arm fluoroscopy, there were no signs of instability in the glenohumeral joint and no signs of liftoff or loosening. At this time, the patient was sent to PACU in stable condition and will start physical therapy immediately. ANESTHESIA: GAUTAM /[id number]
== END 2017-07-16 08:28 | disposition home or self-care (01) ==
LOC: JD.SDS 06:18
PROVIDERS: ATTEND Orthopaedic Surgery
DX: M24.611 Ankylosis, right shoulder (principal); E11.9 Type 2 diabetes mellitus without complications; E78.5 Hyperlipidemia, unspecified; I25.2 Old myocardial infarction; Z79.82 Long term (current) use of aspirin; Z79.84 Long term (current) use of oral hypoglycemic drugs; Z79.899 Other long term (current) drug therapy; Z87.891 Personal history of nicotine dependence
CPT/HCPCS: 23472; 76000; J2250; J3010; J7120; 01620; J2001; J2704

== ENCOUNTER 2020-06-27 09:11 | Day surgery (SDC) | payer BC ==
[~2020-06-27 09:11] MED LIST changes: +Acetaminophen 325 MG Tab PO SCH; +EPINEPHrine 1 MG/ML SDV ONE; +Pregabalin 25 MG Cap PO SCH; +Ropivacaine 0.5% 5 MG/ML 30 ML SDV ONE; +oxyCODONE ER 10 MG TAB.ER PO SCH
[2020-06-27] MEDS ORDERED: Lidocaine 1% 4 ML ONE (09:46)
[2020-06-27] MEDS ORDERED: Ondansetron 4 MG/2 ML SDV ONE (09:46)
[2020-06-27] MEDS ORDERED: Rocuronium 50 MG/5 ML Vial ONE (09:46)
[2020-06-27] MEDS ORDERED: ceFAZolin 1 GM Vial ONE (09:47)
[2020-06-27] MEDS ORDERED: Propofol 200 MG/20 ML SDV ONE (09:47)
[2020-06-27] MEDS ORDERED: Lidocaine 1% 2 ML ONE (09:47)
[2020-06-27] MEDS ORDERED: Midazolam 1 MG/ML 2 ML SDV ONE (09:47)
[2020-06-27] MEDS ORDERED: fentaNYL 250 MCG/5 ML SDV ONE (09:47)
--- NOTE | 2020-06-27 10:08 | PCM.PREANE ---
Preanesthetic Assessment - Procedure Proposed Procedure: LEFT REVERSE TOTAL SHOULDER - Anesthesia/Transfusion/Family Hx Anesthesia History: Prior Anesthesia Without Reaction Family History of Anesthesia Reaction: No Transfusion History: No Prior Transfusion(s) Intubation History: Unknown - Review of Systems General: No Symptoms Pulmonary: Cough (every morning) Cardiovascular: No Symptoms Gastrointestinal: No Symptoms Neurological: No Symptoms Other: Reports: Diabetes, Liver Problems (fatty liver) - Physical Assessment NPO Status Date: 06/26/20 NPO Status Time: 21:00 Vital Signs: 146/85 85 98% 16 97.8 Height: 6 ft 2 in Weight: 95 kg ASA Class: 2 Mental Status: Alert & Oriented x3 Airway Class: Mallampati = 1 Dentition: Reports: Normal Dentition Thyro-Mental Finger Breadths: 3 Mouth Opening Finger Breadths: 3 ROM/Head Extension: Full Lungs: Clear to Auscultation, Normal Respiratory Effort Cardiovascular: Regular Rate, Regular Rhythm - Lab Values: Laboratory Last Values POC Glucose 126 mg/dL (80-115) H 06/27/20 09:29 MRSA (PCR) Negative 06/12/20 12:12 - Allergies Allergies/Adverse Reactions: Allergies Allergy/AdvReac Type Severity Reaction Status Date / Time No Known Allergies Allergy Verified 06/26/20 14:02 - Blood Blood Available: No - Acknowledgements Anesthesia Type Planned: General Anesthesia Pt an Appropriate Candidate for the Planned Anesthesia: Yes Alternatives and Risks of Anesthesia Discussed w Pt/Guardian: Yes Pt/Guardian Understands and Agrees with Anesthesia Plan: Yes PreAnesthesia Questionnaire HEENT History: Reports: Other (See Below) Other HEENT History: states spotty vision to right eye Cardiovascular History: Reports: High Cholesterol, Hypertension, [place], Other (See Below) Other Cardiovascular History: heart disease, heart catheterization Respiratory History: Reports: None Other Respiratory History: Gastrointestinal History: Reports: None Genitourinary History: Reports: None CONTROLS DESIGN ENGINEER History: Reports: None Musculoskeletal History: Reports: Osteoarthritis Neurological History: Reports: Migraines Psychiatric History: Reports: None Endocrine/Metabolic History: Reports: Diabetes, Type II Hematologic History: Reports: None Immunologic History: Reports: None Oncologic (Cancer) History: Reports: None Dermatologic History: Reports: None - Infectious Disease History Infectious Disease History: Reports: None - Past Surgical History HEENT Surgical History: Reports: LASIK Cardiovascular Surgical History: Reports: None Respiratory Surgical History: Reports: None GI Surgical History: Reports: Appendectomy, Colonoscopy, Hernia Repair/Other Female Surgical History: Reports: None Male Surgical History: Reports: None Endocrine Surgical History: Reports: None Neurological Surgical History: Reports: None Musculoskeletal Surgical History: Reports: Shoulder Replacement, Shoulder Surgery, Other (See Below) Other Musculoskeletal Surgeries/Procedures:: 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, right shoulder arthroplasty Oncologic Surgical History: Reports: None Dermatological Surgical History: Reports: None - SUBSTANCE USE Tobacco Use Status *Q: Never Tobacco User Tobacco Use Within Last Twelve Months: No Second Hand Smoke Exposure: No Days Per Week of Alcohol Use: 1 (rare) Recreational Drug Use History: No - HOME MEDS Home Medications: Home Meds metFORMIN HCl [Metformin HCl] 500 mg PO DAILY 10/29/15 [History] Losartan/Hydrochlorothiazide [Losartan-HCTZ 50-12.5 MG] 1 tab PO DAILY 11/19/15 [History] Albuterol Sulfate [Proair Hfa] 2 puff INH Q4H PRN 04/14/17 [History] Ubidecarenone [COQ-10] 90 mg PO DAILY 04/14/17 [History] Cholecalciferol (Vitamin D3) [Vitamin D3] 5,000 unit PO DAILY 07/15/17 [History] Aspirin [Aspirin EC] 325 mg PO DAILY #40 tablet. 06/26/20 [Rx] Cyclobenzaprine [Flexeril] 10 mg PO BID PRN #20 tab 06/26/20 [Rx] Empagliflozin [Jardiance] 25 mg PO DAILY 06/26/20 [History] Pravastatin [Pravachol] 40 mg PO DAILY 06/26/20 [History] oxyCODONE 5 - 10 mg PO Q4H PRN #40 tab 06/26/20 [Rx] - CURRENT (IN HOUSE) MEDS Current Meds: Current Medications Acetaminophen (Tylenol) 975 mg PO ONETIME [facility] Stop: 06/27/20 16:00 Lactated Ringer's (Ringers, Lactated) 1,000 mls @ 125 mls/hr IV ASDIRECTED [facility] Stop: 06/27/20 23:00 Lidocaine/Sodium Bicarbonate (Buffered Lidocaine 1% In Ns 8.4%) 0.25 ml IDERM ONETIME PRN PRN Reason: Prior to IV Start Stop: 06/27/20 18:00 Oxycodone HCl (Oxycontin) 10 mg PO ONETIME [facility] Stop: 06/27/20 16:00 Pregabalin (Lyrica) 50 mg PO ONETIME [facility] Stop: 06/27/20 16:00 Sodium Chloride (Saline Flush) 10 ml FLUSH ASDIRECTED PRN PRN Reason: Keep Vein Open Stop: 06/27/20 18:00 Discontinued Medications Cefazolin Sodium (Ancef) Confirm Administered Dose 2 gm .ROUTE .STK-MED ONE Stop: 06/27/20 09:48 Epinephrine HCl (Adrenalin) Confirm Administered Dose 1 mg .ROUTE .STK-MED ONE Stop: 06/27/20 07:52 Fentanyl (Sublimaze) Confirm Administered Dose 250 mcg .ROUTE .STK-MED ONE Stop: 06/27/20 09:48 Lidocaine HCl (Xylocaine-Mpf 1%) Confirm Administered Dose 4 mls @ as directed .ROUTE .STK-MED ONE Stop: 06/27/20 09:47 Lidocaine HCl (Xylocaine-Mpf 1%) Confirm Administered Dose 2 mls @ as directed .ROUTE .STK-MED ONE Stop: 06/27/20 09:48 Midazolam HCl (Versed 1 Mg/Ml) Confirm Administered Dose 2 mg .ROUTE .STK-MED ONE Stop: 06/27/20 09:48 Ondansetron HCl (Zofran) Confirm Administered Dose 4 mg .ROUTE .STK-MED ONE Stop: 06/27/20 09:47 Propofol (Diprivan 20 Ml) Confirm Administered Dose 200 mg .ROUTE .STK-MED ONE Stop: 06/27/20 09:48 Rocuronium [place] (Zemuron) Confirm Administered Dose 50 mg .ROUTE .STK-MED ONE Stop: 06/27/20 09:47 Ropivacaine (Naropin 0.5%) Confirm Administered Dose 30 ml .ROUTE .STK-MED ONE Stop: 06/27/20 07:52
--- NOTE | 2020-06-27 10:37 | PCM.SN.2 ---
- Free Text/Narrative Note: Date: 06/27/20 Time out:1018 Start time: 1021 End time: [address] left interscalene block with ultrasound guidance and nerve stimulator for post op pain control per Dr. Hernandez and patient. Preop diagnosis left shoulder pain. Procedure is left shoulder reverse total Informed consent obtained. Monitors and O2 placed at 2 l per n/c. Versed 2 mg and Fentanyl 100 A mcg given IV total. Patient awake and talking during procedure. Left neck and clavicle area prepped with chlorprep. Sterile gloves, hat and mask worn. US probe with sterile sleeve placed midclavicular with ID of brachial plexus and subclavian artery. Brachial plexus followed cephalad to level of cricoid. Lidocaine 1% local anesthetic injected prior to block placement. 22 g 2 inch stimplex needle advanced with US guidance to brachial plexus. Positive forearm response at .4mA with nerve stimulator. Ceased with sa line injection. Ropivacaine 0.5% with epi 1:200,000 injected in increments of 5 ml with negative aspiration before each injection to a total of 30 ml. Good spread of local anesthetic seen on US. Patient tolerated procedure well. Vitals stable with no complaints. AJordaCRNA
[2020-06-27] MEDS ORDERED: Ketamine 500 mg/10 ML MDV ONE (11:28)
[2020-06-27] MEDS ORDERED: Dexamethasone 4 MG/ML 5 ML MDV ONE (11:31)
[2020-06-27] MEDS ORDERED: fentaNYL 100 MCG/2 ML SDV IVPUSH PRN (11:33)
[2020-06-27] MEDS ORDERED: HYDROmorphone 0.5 MG/0.5 ML Syringe IVPUSH PRN (11:33)
[2020-06-27] MEDS ORDERED: Ondansetron 4 MG/2 ML SDV IVPUSH PRN (11:33)
[2020-06-27] MEDS ORDERED: Lactated Ringers 1,000 ML ONE (11:48)
[2020-06-27] MEDS: Vancomycin 1 GM SDV ONE ×2 (12:29→12:34)
[2020-06-27] MEDS ORDERED: Ketorolac 30 MG/ML SDV ONE (12:40)
--- NOTE | 2020-06-27 13:14 | PCM.POSTAN ---
POST ANESTHESIA ASSESSMENT - MENTAL STATUS Mental Status: Alert, Oriented - VITAL SIGNS Vital Signs: Last Vital Signs Temp 97.1 F 06/27/20 13:06 Pulse 61 06/27/20 10:30 Resp 15 06/27/20 13:06 BP 155/91 H 06/27/20 13:06 Pulse Ox 97 06/27/20 13:06 1306 155/91 61 15 97.1 - RESPIRATORY Respiratory Status: Respiratory Rate WNL, Airway Patent, O2 Saturation Stable, Supplemental Oxygen - CARDIOVASCULAR CV Status: Pulse Rate WNL, Blood Pressure Stable - GASTROINTESTINAL GI Status: No Symptoms - PAIN Pain Score: 0 - POST OP HYDRATION Hydration Status: Adequate & Stable
[2020-06-27] MEDS ORDERED: oxyCODONE 5 MG Tab PO PRN (13:30)
--- NOTE | 2020-06-27 13:47 | PCM48HPAN ---
Post Anesthesia Note - EVALUATION WITHIN 48HRS OF ANESTHETIC Vital Signs in Normal Range: Yes Patient Participated in Evaluation: Yes Respiratory Function Stable: Yes Airway Patent: Yes Cardiovascular Function Stable: Yes Hydration Status Stable: Yes Pain Control Satisfactory: Yes Nausea and Vomiting Control Satisfactory: Yes Mental Status Recovered: Yes Vital Signs: Last Vital Signs Temp 97.1 F 06/27/20 13:06 Pulse 52 L 06/27/20 13:30 Resp 13 06/27/20 13:30 BP 146/90 H 06/27/20 13:30 Pulse Ox 95 06/27/20 13:30 - COMMENTS/OBSERVATIONS Free Text/Narrative:: States feels pretty good. Denies nausea. Pain meds given
--- NOTE | 2020-06-27 14:11 | CR ---
Left shoulder: Single AP view of the left shoulder was obtained. Comparison: No prior left shoulder imaging is available. Left shoulder prosthesis is noted. Components are aligned. Underlying bony structure shows nothing definitely acute. Impression: 1. Left shoulder prosthesis. Diagnostic code #2
[2020-06-27 14:47] VITALS: PULSE 69
[2020-06-27 16:23] VITALS: BP 119/83
--- NOTE | 2020-06-29 09:37 | CR ---
Left shoulder: 4 fluoroscopic spot views were obtained of the left shoulder. Comparison: No prior left shoulder study is available. Study shows a reverse shoulder prosthesis. Components appear aligned. No gross abnormality is seen within the visualized osseous structures. Fluoroscopy time is given as 4.4 seconds. Impression: 1. Procedural study as noted above. Diagnostic code #2
--- NOTE | 2020-07-07 16:02 | PCM.OPNOTE ---
- General Post-Op/Procedure Note Date of Surgery/Procedure: 06/27/20 Operative Procedure(s): left reverse total shoulder arthroplasty Pre Op Diagnosis: left shoulder rotator cuff tear arthropathy Post-Op Diagnosis: Same Anesthesia Technique: General ET Tube, Regional Block Primary Surgeon: Phillip Hernandez Anesthesia Provider: Jasbir Hilton Pot Lining Supervisor: Ирина Spears Pot Lining Supervisor: Julee Garcia EBL in mLs: 100 Complications: None Condition: Good Free Text/Narrative:: 15 stem 28 baseplate 36+6 4mm poly
--- NOTE | 2020-07-07 16:59 | OR ---
DATE OF OPERATION: 06/27/2020 SURGEON: Phillip Hernandez MD OPERATION PERFORMED: Left reverse total shoulder arthroplasty. PREOPERATIVE DIAGNOSIS: Left shoulder rotator cuff tear arthropathy. POSTOPERATIVE DIAGNOSIS: Left shoulder rotator cuff tear arthropathy. ANESTHESIA: General endotracheal intubation with regional interscalene block. ANESTHESIA PROVIDER: Jasbir Hilton. ASSISTANTS: Ирина Spears PA-C and Julee Garcia LPN ESTIMATED BLOOD LOSS: 100 mL. COMPLICATIONS: None. CONDITION: Stable. IMPLANT: 1. Victor size 15, 135-degree stem. 2. Victor size 4 mm polyethylene. 3. Victor size 28 mm concentric base plate. 4. Victor size 36 +6 glenosphere. DESCRIPTION OF PROCEDURE: The patient was identified in the preoperative holding area. Proper site was marked and identified by the surgeon. The patient was taken back to the operating theater where after adequate anesthesia, the patient's left upper extremity was sterilely prepped and draped in the usual sterile fashion. OR time-out was performed. The patient received 2 g of IV Ancef. At this time, the patient was placed in a reverse Trendelenburg position. Standard anterior deltopectoral incision was made. This was taken down to the cephalic vein. The cephalic vein was then retracted laterally with the deltoid. The clavipectoral fascia was incised and the conjoined tendon was retracted medially. The anterior humeral circumflex vessels were ligated. Attention was turned to the biceps and tenotomy was performed and a tenodesis of the remaining biceps was done at the pectoralis. The biceps tenotomy was taken all the way through the bicipital groove back to the level of the glenoid and the biceps was resected. Peel down of the subscapularis tendon was then done and the humeral head was dislocated. The humeral head cut was then completed and found to be adequate. Attention was turned to the glenoid. Anterior and posterior glenoid retractors were placed. Circumferential removal of the labrum as well as any osteophytes were removed as well as a partial capsulectomy. Guide pin was then placed in a center-center position with roughly 15 degrees inferior tilt. A 28 mm concentric reamer was then utilized until a good bony bleeding bed with a positive smile sign was obtained. The central pin was then removed and the 28 mm base plate was placed with a central compression screw which was found to have adequate purchase and good bony contact. An inferior and superior locking screw were then placed and found to be in adequate position. The 36 +6 glenosphere was then impacted in place and found to be properly adhered to the base plate. Attention was turned to the humerus. Starting with a starter awl, I was then able to use up to a size 15 mm diaphyseal reamer by hand. Starting with a 13 broach, I was able to broach up to a size 15 which was found to be rotationally and vertically stable. A calcar planer was then utilized. Trial implants with +4 were placed. The shoulder was then relocated. C-arm fluoroscopy showed all implants to be in proper position and alignment. The patient had proper tensioning of the deltoid and conjoined tendon and full range of motion with no signs of instability or lift-off. Trial implants were then removed. Size 15 stem with +4 liner 135- degree was then impacted into place. The patient's shoulder was then relocated. C-arm fluoroscopy again showed no fractures and all implants were well positioned. 450 mL of Irrisept irrigation was then irrigated through the shoulder along with 1000 mL of pulse lavage irrigation with Ancef. Topical tranexamic acid and vancomycin powder were applied. 2-0 Vicryl was used subcutaneously and Prineo was used for closure of the skin. The patient tolerated the procedure well and was sent to PACU in stable condition. GAUTAM /[id number] MTDD
== END 2020-06-27 16:00 | disposition home or self-care (01) ==
LOC: JD.SDS 09:11
PROVIDERS: ATTEND Orthopaedic Surgery
DX: M19.012 Primary osteoarthritis, left shoulder (principal); M75.102 Unspecified rotator cuff tear or rupture of left shoulder, not specified as traumatic; E11.9 Type 2 diabetes mellitus without complications; I10 Essential (primary) hypertension; E78.5 Hyperlipidemia, unspecified; I25.2 Old myocardial infarction; Z79.899 Other long term (current) drug therapy; Z90.49 Acquired absence of other specified parts of digestive tract; Z98.890 Other specified postprocedural states; F17.210 Nicotine dependence, cigarettes, uncomplicated; Z79.84 Long term (current) use of oral hypoglycemic drugs
CPT/HCPCS: 01638; 64415; 73020-26-LT; 73020-LT; 76000; 76000-26; 82962; 87641; 97165-GO; A9270-GY; C1713; C1769; C1776; J0171; J0690; J1100; J1885; J2250; J2405; J2704; J2710; J2795; J3010; J3370; J7120

== ENCOUNTER 2021-10-08 09:04 | Day surgery (SDC) | payer BC ==
[~2021-10-08 09:04] MED LIST changes: -EPINEPHrine 1 MG/ML SDV ONE; -Ropivacaine 0.5% 5 MG/ML 30 ML SDV ONE; +Sodium Chloride 0.9% 10 ML Syringe FLUSH SCH; +oxyCODONE ER 10 MG TAB.ER PO ONE; -oxyCODONE ER 10 MG TAB.ER PO SCH
[2021-10-08] MEDS ORDERED: Propofol 200 MG/20 ML SDV ONE (09:51)
[2021-10-08] MEDS ORDERED: fentaNYL 100 MCG/2 ML SDV ONE (09:51)
[2021-10-08] MEDS ORDERED: Midazolam 1 MG/ML 2 ML SDV ONE (09:51)
[2021-10-08] MEDS ORDERED: Lactated Ringers 1,000 ML ONE (09:51)
[2021-10-08] MEDS ORDERED: ceFAZolin 1 GM Vial ONE (09:51)
[2021-10-08] MEDS ORDERED: ePHEDrine 50 MG/ML SDV ONE (12:19)
[2021-10-08] MEDS: Morphine 8 MG, EPINEPHrine 0.3 MG, Cefuroxime 750 MG, Ketorolac 30 MG, Sodium Chloride ... PRN ×10 (12:42→12:58)
[2021-10-08] MEDS: Vancomycin 1 GM SDV ONE ×2 (12:43→13:05)
[2021-10-08] MEDS ORDERED: fentaNYL 100 MCG/2 ML SDV IVPUSH PRN (13:05)
[2021-10-08] MEDS ORDERED: HYDROmorphone 0.5 MG/0.5 ML Syringe IVPUSH PRN (13:05)
[2021-10-08] MEDS ORDERED: Ondansetron 4 MG/2 ML SDV IVPUSH PRN (13:05)
[2021-10-08] MEDS ORDERED: EPINEPHrine 1 MG/ML SDV ONE (14:08)
[2021-10-08] MEDS ORDERED: Ropivacaine 0.5% 5 MG/ML 30 ML SDV ONE (14:08)
[2021-10-09 07:46] VITALS: BP 125/60; PULSE 62
== END 2021-10-08 16:34 | disposition home or self-care (01) ==
LOC: JD.SDS 09:04
PROVIDERS: ATTEND Orthopaedic Surgery
DX: M17.12 Unilateral primary osteoarthritis, left knee (principal); E11.9 Type 2 diabetes mellitus without complications; S83.242A Other tear of medial meniscus, current injury, left knee, initial encounter; I10 Essential (primary) hypertension; I25.2 Old myocardial infarction; E78.5 Hyperlipidemia, unspecified; Z79.899 Other long term (current) drug therapy; Z79.82 Long term (current) use of aspirin; Z90.49 Acquired absence of other specified parts of digestive tract; Z98.890 Other specified postprocedural states
CPT/HCPCS: 0055T; 27447; 73560; 82947; 97110; 97116; 97161; A9270; C1713; C1776; J0171; J0690; J0697; J1885; J2250; J2270; J2704; J2795; J3010; J3370; J7120; 01402; 64450; 76942

== ENCOUNTER 2023-04-02 13:53 | Emergency (ER) | payer BC, MEDICARE ==
[2023-04-02] MEDS ORDERED: Lidocaine/Epineph/Tetracaine 3 ML Syringe TOP ONE (15:53)
[2023-04-02 17:11] VITALS: BP 172/99; PULSE 68
== END 2023-04-02 17:10 | disposition home or self-care (01) ==
LOC: JD.ED 13:53
DX: S01.01XA Laceration without foreign body of scalp, initial encounter (principal); E78.00 Pure hypercholesterolemia, unspecified; I10 Essential (primary) hypertension; E11.9 Type 2 diabetes mellitus without complications; Z79.84 Long term (current) use of oral hypoglycemic drugs; Z79.899 Other long term (current) drug therapy; Z79.82 Long term (current) use of aspirin; Z90.49 Acquired absence of other specified parts of digestive tract; W26.8XXA Contact with other sharp object(s), not elsewhere classified, initial encounter
CPT/HCPCS: 12002; 99282; A9270; 99283

== ENCOUNTER 2024-11-03 15:12 | Emergency (ER) | payer MEDICARE ==
[2024-11-03 15:32] VITALS: BP 150/92; PULSE 60
[2024-11-03] MEDS: Lidocaine 1% 10 ML MDV ONE (16:44)
[2024-11-03] MEDS: Lidocaine 1% 10 ML MDV INJECT ONE (16:44)
[2024-11-03] MEDS: Lidocaine 1% 50 ML MDV INJECT ONE (16:45)
== END 2024-11-03 16:43 | disposition home or self-care (01) ==
LOC: JD.ED 15:12
DX: S61.012A Laceration without foreign body of left thumb without damage to nail, initial encounter (principal); I10 Essential (primary) hypertension; I25.2 Old myocardial infarction; E11.9 Type 2 diabetes mellitus without complications; E78.00 Pure hypercholesterolemia, unspecified; Z79.84 Long term (current) use of oral hypoglycemic drugs; Z79.82 Long term (current) use of aspirin; Z79.899 Other long term (current) drug therapy; Z90.49 Acquired absence of other specified parts of digestive tract; W26.0XXA Contact with knife, initial encounter
CPT/HCPCS: 12001; 99282; J2003

== ENCOUNTER 2025-04-02 08:34 | Day surgery (SDC) | payer MEDICARE ==
[~2025-04-02 08:34] MED LIST changes: -Acetaminophen 325 MG Tab PO SCH; -Lactated Ringers 1,000 ML IV SCH; -Lidocaine 1%/Sod Bicarbonate in NS 8.4% 1 ML Syringe IDERM PRN; -Pregabalin 25 MG Cap PO SCH; -oxyCODONE ER 10 MG TAB.ER PO ONE
[2025-04-02] MEDS: Lactated Ringers 1,000 ML IV SCH (09:05)
[2025-04-02] MEDS: oxyCODONE ER 10 MG TAB.ER PO SCH (09:24)
[2025-04-02] MEDS ORDERED: fentaNYL 100 MCG/2 ML SDV ONE (09:40)
[2025-04-02] MEDS ORDERED: propofoL 500 MG/50 ML 50 ML ONE (10:03)
[2025-04-02] MEDS ORDERED: Phenylephrine 1% 10 MG/ML SDV ONE (10:03)
[2025-04-02] MEDS ORDERED: ePHEDrine 50 MG/ML SDV ONE (10:08)
[2025-04-02] MEDS ORDERED: Lactated Ringers 1,000 ML ONE (10:12)
[2025-04-02] MEDS ORDERED: Ropivacaine 0.5% 5 MG/ML 30 ML SDV ONE (10:33)
[2025-04-02] MEDS ORDERED: Propofol 200 MG/20 ML SDV ONE (10:42)
[2025-04-02] MEDS: Morphine 8 MG, EPINEPHrine 0.3 MG, Cefuroxime 750 MG, Ketorolac 30 MG, Sodium Chloride ... PRN (10:45)
[2025-04-02 14:55] VITALS: BP 97/71; PULSE 54
== END 2025-04-02 14:38 | disposition home or self-care (01) ==
LOC: JD.SDS 08:34
PROVIDERS: ATTEND Orthopaedic Surgery
DX: M17.11 Unilateral primary osteoarthritis, right knee (principal); I10 Essential (primary) hypertension; E78.00 Pure hypercholesterolemia, unspecified; E11.65 Type 2 diabetes mellitus with hyperglycemia; Z79.84 Long term (current) use of oral hypoglycemic drugs; Z79.82 Long term (current) use of aspirin; Z79.899 Other long term (current) drug therapy
CPT/HCPCS: 0055T; 27447; 64447; 73560; 82947; 97116; 97161; A9270; C1713; C1776; J0169; J0690; J0697; J1885; J2272; J2371; J2704; J2795; J3010; J3373; J7120; J3490